=== PATIENT | female | born 1955 | race Caucasian/White ===

== ENCOUNTER → 2018-02-06 11:20 | Outpatient (CLI) | payer OTHER, SELFPAY ==
[2018-02-06 11:27] LABS: Adenovirus F 40/41, stool Not Detected (NotDetected); Astrovirus Not Detected (NotDetected); Campylobacter Not Detected (NotDetected); Cryptosporidium Not Detected (NotDetected); Cyclospora Cayetanesis Not Detected (NotDetected); Entamoeba histolytica Not Detected (NotDetected); Enteroaggregative E coli Not Detected (NotDetected); Enteropathogenic E coli Not Detected (NotDetected); Enterotoxigenic E coli Not Detected (NotDetected); Giardia lamblia Not Detected (NotDetected); Norovirus Not Detected (NotDetected); Plesimonas Shigalloides, PCR Not Detected (NotDetected); Rotavirus A Not Detected (NotDetected); Salmonella, PCR Not Detected (NotDetected); Sapovirus Not Detected (NotDetected); Shiga-like toxin E coli Not Detected (NotDetected); Shigella Enterovasive E coli Not Detected (NotDetected); Vibrio Cholerae Not Detected (NotDetected); Vibrio, PCR Not Detected (NotDetected); Yersinia Entercolitica, PCR Not Detected (NotDetected)
[2018-02-06 14:45] LABS: Occult Blood,Stool Negative (Negative)
[2018-02-06 18:59] LABS: Clostridium Difficile A/B, PCR Detected (NotDetected)
[2018-02-13 16:02] LABS: Fats, Neutral Normal (.); Fats, Total Normal (.)
== END ==
PROVIDERS: Visit Provider Internal Medicine
DX: R19.7 Diarrhea, unspecified (principal)
CPT/HCPCS: 82272; 82705; 87177; 87205; 87507; G0328

== ENCOUNTER → 2018-02-19 09:41 | Outpatient (POV) | payer OTHER, SELFPAY | PROVIDERS: Family Provider Internal Medicine; PCP Obstetrics & Gynecology; Visit Provider Nurse Practitioner Acute Care | DX: Z00.00 Encounter for general adult medical examination without abnormal findings (principal) ==

== ENCOUNTER → 2018-06-18 11:23 | Outpatient (POV) | payer OTHER, SELFPAY ==
[2018-06-18 16:30] LABS: Adenovirus F 40/41, stool Not Detected (NotDetected); Astrovirus Not Detected (NotDetected); Campylobacter Not Detected (NotDetected); Clostridium Difficile A/B, PCR Not Detected (NotDetected); Cryptosporidium Not Detected (NotDetected); Cyclospora Cayetanesis Not Detected (NotDetected); Entamoeba histolytica Not Detected (NotDetected); Enteroaggregative E coli Not Detected (NotDetected); Enteropathogenic E coli Not Detected (NotDetected); Enterotoxigenic E coli Not Detected (NotDetected); Giardia lamblia Not Detected (NotDetected); Norovirus Not Detected (NotDetected); Plesimonas Shigalloides, PCR Not Detected (NotDetected); Rotavirus A Not Detected (NotDetected); Salmonella, PCR Not Detected (NotDetected); Sapovirus Not Detected (NotDetected); Shiga-like toxin E coli Not Detected (NotDetected); Shigella Enterovasive E coli Not Detected (NotDetected); Vibrio Cholerae Not Detected (NotDetected); Vibrio, PCR Not Detected (NotDetected); Yersinia Entercolitica, PCR Not Detected (NotDetected)
== END ==
PROVIDERS: Visit Provider Nurse Practitioner Acute Care
DX: R19.7 Diarrhea, unspecified (principal)
CPT/HCPCS: 87507

== ENCOUNTER → 2018-08-13 12:41 | Outpatient (POV) | payer OTHER, SELFPAY | PROVIDERS: Visit Provider Nurse Practitioner Acute Care | DX: Z00.00 Encounter for general adult medical examination without abnormal findings (principal) ==

== ENCOUNTER → 2019-04-08 16:07 | Outpatient (CLI) | payer MEDICARE, BC, SELFPAY ==
[2019-04-08 16:10] LABS: Adenovirus F 40/41, stool Not Detected (NotDetected); Astrovirus Not Detected (NotDetected); Campylobacter Not Detected (NotDetected); Clostridium Difficile A/B, PCR Not Detected (NotDetected); Cryptosporidium Not Detected (NotDetected); Cyclospora Cayetanesis Not Detected (NotDetected); Entamoeba histolytica Not Detected (NotDetected); Enteroaggregative E coli Not Detected (NotDetected); Enteropathogenic E coli Not Detected (NotDetected); Enterotoxigenic E coli Not Detected (NotDetected); Giardia lamblia Not Detected (NotDetected); Norovirus Not Detected (NotDetected); Plesimonas Shigalloides, PCR Not Detected (NotDetected); Rotavirus A Not Detected (NotDetected); Salmonella, PCR Not Detected (NotDetected); Sapovirus Not Detected (NotDetected); Shiga-like toxin E coli Not Detected (NotDetected); Shigella Enterovasive E coli Not Detected (NotDetected); Vibrio Cholerae Not Detected (NotDetected); Vibrio, PCR Not Detected (NotDetected); Yersinia Entercolitica, PCR Not Detected (NotDetected)
== END ==
PROVIDERS: Visit Provider Nurse Practitioner Family
DX: R19.7 Diarrhea, unspecified (principal)
CPT/HCPCS: 87507

== ENCOUNTER → 2019-05-06 10:04 | Outpatient (POV) | payer OTHER, SELFPAY | PROVIDERS: PCP Internal Medicine; Visit Provider Nurse Practitioner Family | DX: Z00.00 Encounter for general adult medical examination without abnormal findings (principal) ==

== ENCOUNTER → 2019-08-05 10:40 | Outpatient (POV) | payer OTHER, SELFPAY | PROVIDERS: Visit Provider Nurse Practitioner Family | DX: Z00.00 Encounter for general adult medical examination without abnormal findings (principal) ==

== ENCOUNTER → 2021-04-27 17:01 | Outpatient (CLI) | payer MEDICARE, BC, SELFPAY ==
[2021-04-27 18:41] LABS: Hemoglobin A1C 11.2 % (4.0-6.0)
[2021-04-27 18:45] LABS: Alanine Aminotransferase 22 U/L (12-78); Albumin Level 3.8 g/dl (3.5-5.0); Albumin/Globulin Ratio 1.1 (1.1-1.8); Alkaline Phosphatase 72 U/L (38-126); Anion Gap 16.7 mEq/L (5-15); Aspartate Amino Transferase 33 U/L (14-36); Bilirubin,Total 0.8 mg/dl (0.2-1.3); Blood Urea Nitrogen 16 mg/dl (7-17); Calcium 9.4 mg/dl (8.4-10.2); Carbon Dioxide 25 mmol/L (22.0-30.0); Chloride 103 mmol/L (98-107); Chol/HDL Ratio 3.8 (1-3.5); Cholesterol 123 mg/dl (140-200); Estimated Glomerular Filt Rate 62 ml/min (>60); GFR (African American) 76 ML/MIN (>60); Globulin 3.4 g/dL (1.3-3.2); Glucose 179 mg/dl (74-100); HDL Cholesterol 32 mg/dl (40-60); Potassium 4.7 mmoL/L (3.5-5.1); Sodium 140 mmol/L (136-145); Total Protein,Serum 7.2 g/dl (6.3-8.2); Triglycerides 180 mg/dl (30-150); VLDL Cholesterol 36 mg/dL (0-40)
[2021-04-27 18:55] LABS: Direct LDL Cholesterol 61.24 mg/dL (100-129)
[2021-04-27 19:14] LABS: Thyroid Stimulating Hormone < 0.02 uIU/mL (0.465-4.68)
[2021-04-27 19:52] LABS: Free T4 (Free Thyroxine) 0.88 ng/dl (0.78-2.19)
== END ==
PROVIDERS: Visit Provider Internal Medicine
DX: E11.42 Type 2 diabetes mellitus with diabetic polyneuropathy (principal); I10 Essential (primary) hypertension; E78.5 Hyperlipidemia, unspecified; D35.2 Benign neoplasm of pituitary gland; K21.9 Gastro-esophageal reflux disease without esophagitis; R80.1 Persistent proteinuria, unspecified; Z79.84 Long term (current) use of oral hypoglycemic drugs
CPT/HCPCS: 80053; 80061; 83036; 84439; 84443

== ENCOUNTER → 2021-10-27 12:51 | Outpatient (CLI) | payer MEDICARE, BC, SELFPAY ==
[2021-10-27 13:52] LABS: Basophils # 0.1 K/mm3 (0-0.2); Basophils % 0.6 % (0.1-2.0); Eosinophils # 0.2 K/mm3 (0.0-0.4); Eosinophils % 2.2 % (0.1-12.0); Hematocrit 37.1 % (37.0-47.0); Hemoglobin 11.9 g/dL (12.2-16.2); Lymphocytes # 2.7 K/mm3 (0.7-4.5); Lymphocytes % 29.2 % (10-50); Mean Corpuscular HGB Conc 32.2 g/dL (31.8-35.4); Mean Corpuscular Hemoglobin 26.6 pg (27.0-31.2); Mean Corpuscular Volume 82.7 fl (81-99); Mean Platelet Volume 7.6 fl (7.4-10.4); Monocytes # 0.6 K/mm3 (0.1-1.0); Monocytes % 6.4 % (1.7-9.3); Neutrophils # 5.7 K/mm3 (1.8-7.8); Neutrophils % 61.8 % (37.0-80.0); Platelet Count 328 K/mm3 (142-424); Red Blood Count 4.49 M/mm3 (4.20-5.40); Red Cell Distribution Width 14.2 % (11.5-17.5); White Blood Count 9.2 K/mm3 (4.8-10.8)
[2021-10-27 14:32] LABS: Chloride 106 mmol/L (98-107)
[2021-10-27 14:33] LABS: Potassium 4.3 mmoL/L (3.5-5.1); Sodium 139 mmol/L (136-145)
[2021-10-27 14:35] LABS: Alanine Aminotransferase 18 U/L (12-78); Alkaline Phosphatase 70 U/L (38-126); Aspartate Amino Transferase 23 U/L (14-36); Bilirubin,Total 0.8 mg/dl (0.2-1.3); Blood Urea Nitrogen 16 mg/dl (7-17); Estimated Glomerular Filt Rate 62 ml/min (>60); GFR (African American) 76 ML/MIN (>60)
[2021-10-27 14:36] LABS: Albumin Level 3.6 g/dl (3.5-5.0); Albumin/Globulin Ratio 1.2 (1.1-1.8); Anion Gap 11.3 mEq/L (5-15); Calcium 9.3 mg/dl (8.4-10.2); Carbon Dioxide 26 mmol/L (22.0-30.0); Chol/HDL Ratio 3.2 (1-3.5); Cholesterol 106 mg/dl (140-200); Globulin 3.1 g/dL (1.3-3.2); Glucose 121 mg/dl (74-100); HDL Cholesterol 33 mg/dl (40-60); Total Protein,Serum 6.7 g/dl (6.3-8.2); Triglycerides 149 mg/dl (30-150); VLDL Cholesterol 30 mg/dL (0-40)
[2021-10-27 14:47] LABS: Direct LDL Cholesterol 56.62 mg/dL (100-129)
[2021-10-27 14:52] LABS: Free T4 (Free Thyroxine) 1.65 ng/dl (0.78-2.19)
[2021-10-27 15:07] LABS: Thyroid Stimulating Hormone < 0.02 uIU/mL (0.465-4.68)
[2021-10-27 19:27] LABS: Hemoglobin A1C 6.5 % (4.0-6.0)
== END ==
PROVIDERS: PCP Internal Medicine; Visit Provider Internal Medicine
DX: E11.42 Type 2 diabetes mellitus with diabetic polyneuropathy (principal); E11.43 Type 2 diabetes mellitus with diabetic autonomic (poly)neuropathy; I10 Essential (primary) hypertension; E78.5 Hyperlipidemia, unspecified; Z79.84 Long term (current) use of oral hypoglycemic drugs
CPT/HCPCS: 80053; 80061; 82533; 83036; 84439; 84443; 85025

== ENCOUNTER → 2021-11-09 09:40 | Outpatient (CLI) | payer MEDICARE, BC, SELFPAY | PROVIDERS: Visit Provider Internal Medicine | DX: Z01.812 Encounter for preprocedural laboratory examination (principal); Z11.52 Encounter for screening for COVID-19; Z12.11 Encounter for screening for malignant neoplasm of colon; Z86.010 Personal history of colon polyps | CPT/HCPCS: C9803; U0003; U0005 ==

== ENCOUNTER 2021-11-11 09:46 | Day surgery (SDC) | payer MEDICARE, BC, SELFPAY ==
[2021-11-09 13:02] VITALS: BMI 38.9
[2021-11-11 10:40] VITALS: BP 178/86; PULSE 98; RESP 18; TEMP 36.8; O2SAT 99
[2021-11-11 10:52] LABS: POC Glucose,Bedside 121 (70-110)
--- NOTE | 2021-11-11 10:59 | P.PN_ITS ---
[facility] Anesthesia Checklist - Patient Identification Patient Identification: Arm Band - Structural Data Admitted From: Home Planned Operative Procedure/s: Colonoscopy Consent for Planned Operative Procedure(s) Verified: Yes - NPO Status Verified Time NPO: 00:00 - Additional verifications Anesthesia Reactions: No - Airway Assessment C-Spine Mobility Assessed: Yes TMJ Mobility Assessed: Yes Dentition: Good Dentition - Neurological Assessment Level of Consciousness: Awake Hx Seizures: No Numbness or tingling in extremities: No - Anesthesia Plan Anesthesia Risk discussed: Yes Anesthesia Plan: Verified ASA Class: III Anesthesia Type: MAC [facility] History I have reviewed the patient's past medical history: Yes Medical History: Reports:: Diabetes Mellitus Type 2, Hypertension Denies:: Cancer, Diabetes Mellitus Type 1, Internal Pacemaker, Lung Disease, MRSA, Seizures *Have you ever received a pneumonia vaccine?: Yes *Have you received a flu vaccine this season?: Yes Anesthesia experience/problems:: None Other Surgeries: No: Pacemaker Amputation: No - *Social History Last grade of school completed: High school graduate Smoking Status: Never smoker Alcohol Intake: current Alcohol Intake Frequency:: holidays/special occasions only Substance Use Type: denies use *Occupational Status:: retired Housing: house Household Members: spouse *Travel in the last 8 weeks: None Family Hx:: Unable to obtain
[2021-11-11 11:04] VITALS: O2SAT 99
--- NOTE | 2021-11-11 11:24 | HMH.SCOPE ---
- Procedure: Date: 11/11/21 Patient Date of :: 1955 Procedure Performed:: Screening colonoscopy Indications:: History of polyp Performing Provider:: Eugenie Correa MD Referring Provider:: Panchito Mendez MD Sedation:: Propofol Procedure:: After placing the patient in the left lateral decubitus position, the colonoscopy was gently inserted into the rectum and under direct visualization advanced to the cecum which was identified by transillumination in the right lower quadrant, identification of the ileocecal valve, appendiceal orifice, and cecal strap. Color, texture, mucosa, and anatomy of the colon were carefully examined with the scope. Findings:: Anal canal: normal Rectum: normal Sigmoid colon: normal without polyps or inflammatory changes Descending colon: normal without polyps or inflammatory changes Splenic flexure: normal Transverse colon: normal without polyps or inflammatory changes Hepatic flexure: normal Ascending colon: normal without polyps or inflammatory changes Cecum: normal Terminal ileum: not visualized Impression: Normal colonoscopy Recommendations:: Follow up screening examination in about FIVE years or so in view of history of polyps Complications:: None Estimated blood obtained (mL): 0
[2021-11-11 11:26] VITALS: BP 105/48; PULSE 96; RESP 16; TEMP 36.7; O2SAT 94
[2021-11-11 11:36] VITALS: BP 114/66; PULSE 65; RESP 16; O2SAT 99
[2021-11-11 11:46] VITALS: BP 109/58; PULSE 97; RESP 16; O2SAT 96
[2021-11-11 11:56] VITALS: BP 118/62; PULSE 93; RESP 16; TEMP 36.7; O2SAT 98
== END 2021-11-11 12:05 | disposition home or self-care (01) ==
LOC: OUTP 09:48
PROVIDERS: PCP Internal Medicine; Visit Provider Internal Medicine Gastroenterology
PROC: 0DJD8ZZ Inspection of Lower Intestinal Tract, Via Natural or Artificial Opening Endoscopic (ICD-10-PCS; CPT 45378; principal; 2021-11-11 11:00)
DX: Z12.11 Encounter for screening for malignant neoplasm of colon (principal); Z86.010 Personal history of colon polyps; E11.9 Type 2 diabetes mellitus without complications; I10 Essential (primary) hypertension; Z88.5 Allergy status to narcotic agent; Z88.8 Allergy status to other drugs, medicaments and biological substances; Z91.040 Latex allergy status; Z79.899 Other long term (current) drug therapy
CPT/HCPCS: G0105; 82962; J2704

== ENCOUNTER → 2022-04-30 08:59 | Outpatient (CLI) | payer MEDICARE, BC, SELFPAY ==
[2022-04-30 09:04] LABS: Adenovirus F 40/41, stool Not Detected (NotDetected); Astrovirus Not Detected (NotDetected); Campylobacter Not Detected (NotDetected); Clostridium Difficile A/B, PCR Not Detected (NotDetected); Cryptosporidium Not Detected (NotDetected); Cyclospora Cayetanesis Not Detected (NotDetected); Entamoeba histolytica Not Detected (NotDetected); Enteroaggregative E coli Not Detected (NotDetected); Enteropathogenic E coli Not Detected (NotDetected); Enterotoxigenic E coli Not Detected (NotDetected); Giardia lamblia Not Detected (NotDetected); Norovirus Not Detected (NotDetected); Plesimonas Shigalloides, PCR Not Detected (NotDetected); Rotavirus A Not Detected (NotDetected); Salmonella, PCR Not Detected (NotDetected); Sapovirus Not Detected (NotDetected); Shiga-like toxin E coli Not Detected (NotDetected); Shigella Enterovasive E coli Not Detected (NotDetected); Vibrio Cholerae Not Detected (NotDetected); Vibrio, PCR Not Detected (NotDetected); Yersinia Entercolitica, PCR Not Detected (NotDetected)
== END ==
PROVIDERS: PCP Internal Medicine; Visit Provider Internal Medicine
DX: K52.89 Other specified noninfective gastroenteritis and colitis (principal); R19.7 Diarrhea, unspecified
CPT/HCPCS: 87506

== ENCOUNTER → 2022-05-09 11:59 | Outpatient (CLI) | payer MEDICARE, BC, SELFPAY ==
[2022-05-09 14:58] LABS: Hemoglobin A1C 6.2 % (4.0-6.0)
[2022-05-09 15:08] LABS: Alanine Aminotransferase 18 U/L (12-78); Albumin Level 3.8 g/dl (3.5-5.0); Albumin/Globulin Ratio 1.2 (1.1-1.8); Alkaline Phosphatase 95 U/L (38-126); Anion Gap 16.3 mEq/L (5-15); Aspartate Amino Transferase 24 U/L (14-36); Bilirubin,Total 0.7 mg/dl (0.2-1.3); Blood Urea Nitrogen 15 mg/dl (7-17); Calcium 9.5 mg/dl (8.4-10.2); Carbon Dioxide 24 mmol/L (22.0-30.0); Chloride 103 mmol/L (98-107); Chol/HDL Ratio 3.5 (1-3.5); Cholesterol 127 mg/dl (140-200); Estimated Glomerular Filt Rate 62 ml/min (>60); GFR (African American) 75 ML/MIN (>60); Globulin 3.1 g/dL (1.3-3.2); Glucose 141 mg/dl (74-100); HDL Cholesterol 36 mg/dl (40-60); Potassium 4.3 mmoL/L (3.5-5.1); Sodium 139 mmol/L (136-145); Total Protein,Serum 6.9 g/dl (6.3-8.2); Triglycerides 215 mg/dl (30-150); VLDL Cholesterol 43 mg/dL (0-40)
[2022-05-09 15:25] LABS: Direct LDL Cholesterol 62.88 mg/dL (100-129); T4 (Thyroxine) 12.4 ug/dl (5.53-11.0)
[2022-05-09 15:39] LABS: Thyroid Stimulating Hormone < 0.02 uIU/mL (0.465-4.68)
[2022-05-10 11:06] LABS: Free T4 (Free Thyroxine) 1.56 ng/dl (0.78-2.19)
== END ==
PROVIDERS: PCP Internal Medicine; Visit Provider Internal Medicine
DX: E11.42 Type 2 diabetes mellitus with diabetic polyneuropathy (principal); D35.2 Benign neoplasm of pituitary gland; Z79.84 Long term (current) use of oral hypoglycemic drugs; Z79.899 Other long term (current) drug therapy
CPT/HCPCS: 80053; 80061; 83036; 84436; 84439; 84443

== ENCOUNTER → 2022-11-07 12:33 | Outpatient (CLI) | payer MEDICARE, BC, SELFPAY ==
[2022-11-07 15:40] LABS: Hemoglobin A1C 5.8 % (4.0-6.0)
[2022-11-07 15:47] LABS: Alanine Aminotransferase 21 U/L (12-78); Albumin Level 3.7 g/dl (3.5-5.0); Albumin/Globulin Ratio 1.2 (1.1-1.8); Alkaline Phosphatase 63 U/L (38-126); Anion Gap 17.5 mEq/L (5-15); Aspartate Amino Transferase 26 U/L (14-36); Bilirubin,Total 0.9 mg/dl (0.2-1.3); Blood Urea Nitrogen 13 mg/dl (7-17); Calcium 8.9 mg/dl (8.4-10.2); Carbon Dioxide 26 mmol/L (22.0-30.0); Chloride 101 mmol/L (98-107); Cholesterol 121 mg/dl (140-200); Estimated Glomerular Filt Rate 71 ml/min (>60); GFR (African American) 86 ML/MIN (>60); Glucose 99 mg/dl (74-100); HDL Cholesterol 40 mg/dl (40-60); Potassium 4.5 mmoL/L (3.5-5.1); Sodium 140 mmol/L (136-145); Total Protein,Serum 6.7 g/dl (6.3-8.2); Triglycerides 183 mg/dl (30-150); VLDL Cholesterol 37 mg/dL (0-40)
[2022-11-07 15:59] LABS: Direct LDL Cholesterol 59.03 mg/dL (100-129)
[2022-11-07 16:05] LABS: T4 (Thyroxine) 12.6 ug/dl (5.53-11.0)
[2022-11-07 16:18] LABS: Thyroid Stimulating Hormone < 0.02 uIU/mL (0.465-4.68)
[2022-11-09 13:59] LABS: Prolactin 30.5 ng/mL (4.8-23.3)
== END ==
PROVIDERS: PCP Internal Medicine; Visit Provider Internal Medicine
DX: E11.42 Type 2 diabetes mellitus with diabetic polyneuropathy (principal); I10 Essential (primary) hypertension; Z79.84 Long term (current) use of oral hypoglycemic drugs
CPT/HCPCS: 80053; 80061; 82533; 83036; 84146; 84436; 84443

== ENCOUNTER → 2022-11-16 11:59 | Outpatient (CLI) | payer MEDICARE, BC, SELFPAY ==
[2022-11-16 14:37] LABS: Free T4 (Free Thyroxine) 1.43 ng/dl (0.78-2.19)
== END ==
PROVIDERS: PCP Internal Medicine; Visit Provider Internal Medicine
DX: I10 Essential (primary) hypertension (principal); E03.9 Hypothyroidism, unspecified; E66.01 Morbid (severe) obesity due to excess calories
CPT/HCPCS: 84439

== ENCOUNTER → 2022-11-23 10:02 | Outpatient (CLI) | payer MEDICARE, BC, SELFPAY ==
--- NOTE | 2022-11-23 10:06 | MM_ITS ---
PROCEDURE INFORMATION: Exam: MG Bilateral Screening 3D Mammography Exam date and time: 11/23/2022 10:11 AM Age: 67 years old Clinical indication: Screening examination TECHNIQUE: Imaging protocol: Bilateral Screening tomosynthesis and 2D mammography including computer-aided detection (CAD) when performed. COMPARISON: No relevant prior studies available. FINDINGS: MAMMOGRAPHY: Breast composition: There are scattered areas of fibroglandular density. Mass: None. Architectural distortion: None. Calcifications: Probably benign dystrophic calcifications clustered in the posterior third of the left upper outer quadrant Asymmetric density: Questionable 1.0 cm focal asymmetry in the posterior third of the right approximate 6 o'clock axis Skin thickening: None. Axillary adenopathy: None. IMPRESSION: 1. Patient to be recalled for spot compression views of the right breast in the CC and MLO projections, a full 90 degree lateral view, and right breast ultrasound for further evaluation of a right breast mass. 2. Patient to be recalled for spot magnification views of the left breast in the CC and MLO projections for further evaluation of left breast calcifications. ASSESSMENT: BI-RADS Category 0: Incomplete- Need Additional Imaging Evaluation and/or Prior Mammograms for Comparison
== END ==
PROVIDERS: PCP Internal Medicine; Visit Provider Internal Medicine
DX: Z12.31 Encounter for screening mammogram for malignant neoplasm of breast (principal)
CPT/HCPCS: 77063; 77067

== ENCOUNTER → 2022-12-09 14:32 | Outpatient (CLI) | payer MEDICARE, BC, SELFPAY ==
--- NOTE | 2022-12-09 14:37 | MM_ITS ---
PROCEDURE INFORMATION: Exam: US Right Breast, Complete MG Bilateral Diagnostic Breast Tomosynthesis Exam date and time: 12/09/2022 2:31 PM Age: 67 years old Clinical indication: Patient recalled on the basis of a screening mammogram for further evaluation; Bilateral breasts; right breast asymmetry and left breast calcifications TECHNIQUE: Imaging protocol: Complete ultrasound of all four quadrants of the right breast and the retroareolar regions, including ultrasound of the axilla when performed. Bilateral Diagnostic tomosynthesis and 2D mammography including computer-aided detection (CAD) when performed. Unilateral or bilateral exam. COMPARISON: 1. MG MM DIG SCREENING MAMM BI W/CAD 11/23/2022 10:11 AM 2. MG MAMMO SCREENING BILATERAL W CAD 08/21/2013 11:45 AM FINDINGS: MAMMOGRAPHY: Digital diagnostic magnification views of the posterior left upper outer quadrant demonstrate a cluster uniformly dense slightly variable in shape calcifications. The calcifications span 0.7 cm of breast tissue. There is no associated soft tissue mass. The calcifications are probably benign in etiology. Digital diagnostic spot compression views of the posterior right 6 o'clock axis demonstrates a persistent VA 0.7 cm asymmetry better seen in the craniocaudal projection. ULTRASOUND: Sonographic images of the . Right breast including the retroareolar region, all 4 quadrants and the axilla do not demonstrate any solid or cystic masses. Cursors were placed over a benign fat lobule in the 6 o'clock axis 2 cm from the nipple. Specifically, the asymmetry on mammography is not seen on sonography. No architectural distortion or acoustical shadowing. Evaluation of the right axilla demonstrates the suggestion of a possible 4.5 cm abnormal lymph node, in that, no fatty hilum is identified. IMPRESSION: 1. Probably benign focal asymmetry in the posterior right 6 o'clock axis only seen on mammography. A six-month follow-up diagnostic right mammogram is recommended to ensure stability over time 2. Probably benign left breast calcifications. A six-month follow-up diagnostic left mammogram is recommended to ensure stability over time 3. Cursors were placed over what appears to be an abnormal lymph node in the right axilla. Repeat sonography is recommended. If persistent abnormal right axillary lymph node is identified, ultrasound-guided core biopsy is recommended for further evaluation ASSESSMENT: BI-RADS Category 0: Incomplete- Need Additional Imaging Evaluation and/or Prior Mammograms for Comparison
== END ==
PROVIDERS: PCP Internal Medicine; Visit Provider Internal Medicine
DX: R92.8 Other abnormal and inconclusive findings on diagnostic imaging of breast (principal)
CPT/HCPCS: 76641; 77062; 77066; G0279

== ENCOUNTER → 2023-01-11 13:10 | Outpatient (CLI) | payer MEDICARE, BC, SELFPAY ==
--- NOTE | 2023-01-11 13:10 | US_ITS ---
PROCEDURE INFORMATION: Exam: US Right Breast Limited Exam date and time: 01/11/2023 1:52 PM Age: 67 years old Clinical indication: Lymph node swollen TECHNIQUE: Imaging protocol: Limited ultrasound of right breast with image documentation, including axilla when performed. Exam focused on the search and evaluation for mass. COMPARISON: US BREAST RT COMPLETE 12/09/2022 3:21 PM FINDINGS: Breast: Sonographic images of the right axilla demonstrate cursors over a 4.5 cm area of hypoechoic tissue possibly reflecting an abnormal lymph node. There is a 1.4 cm fat containing benign-appearing axillary lymph node identified. IMPRESSION: Questionable abnormal deep right axillary lymph node. Ultrasound followed by ultrasound-guided core biopsy is recommended for further evaluation ASSESSMENT: BI-RADS Category 4: Suspicious
== END ==
PROVIDERS: PCP Internal Medicine; Visit Provider Surgery
DX: N64.4 Mastodynia (principal); R59.9 Enlarged lymph nodes, unspecified
CPT/HCPCS: 76641

== ENCOUNTER → 2023-01-20 09:25 | Outpatient (CLI) | payer MEDICARE, BC, SELFPAY ==
--- NOTE | 2023-01-20 09:26 | US_ITS ---
FINAL REPORT CLINICAL HISTORY: .fna axillary node-- liban vazquez--- FINDINGS: Ultrasound guided right axillary core biopsy. HISTORY: Right axillarymass. Attending radiologist: Dr. Humphrey Physician Professional Nurse: Liban Vazquez PA-C PROCEDURE: After informed consent was obtained and a time-out was performed, the patient was prepped and draped in usual sterile fashion over the right axilla. Utilizing local anesthesia and sterile technique with a 18-gauge coaxial core system, access to lesion was obtained. A total of 4 separate 18-gauge core biopsies were obtained. passes were made. The patient received no conscious sedation. The patient tolerated procedure well and left the department in good condition. IMPRESSION: Status post ultrasound guided core biopsy of right axillary mass without immediate complication. Films reviewed , interpreted and dictated by Dr. Soraida Humphrey. Transcribed by Liban Vazquez PA-C. Reviewed, Interpreted and Dictated by Soraida Humphrey MD Transcribed by MARY KAY Perez Authenticated and [facility]
== END ==
PROVIDERS: PCP Internal Medicine; Visit Provider Surgery
DX: R59.9 Enlarged lymph nodes, unspecified (principal)
CPT/HCPCS: 10005; 88184; 88185; 88305

== ENCOUNTER → 2023-02-08 14:27 | Outpatient (CLI) | payer MEDICARE, BC, SELFPAY ==
[2023-02-08 16:03] LABS: Anion Gap 15.9 mEq/L (5-15); Blood Urea Nitrogen 18 mg/dl (7-17); Calcium 9.3 mg/dl (8.4-10.2); Carbon Dioxide 25 mmol/L (22.0-30.0); Chloride 106 mmol/L (98-107); Estimated Glomerular Filt Rate 49 ml/min (>60); GFR (African American) 60 ML/MIN (>60); Glucose 127 mg/dl (74-100); Potassium 4.9 mmoL/L (3.5-5.1); Sodium 142 mmol/L (136-145)
[2023-02-08 17:09] LABS: Hemoglobin A1C 5.8 % (4.0-6.0)
== END ==
PROVIDERS: PCP Internal Medicine; Visit Provider Internal Medicine
DX: E11.42 Type 2 diabetes mellitus with diabetic polyneuropathy (principal); I10 Essential (primary) hypertension; D35.2 Benign neoplasm of pituitary gland; E78.5 Hyperlipidemia, unspecified; K21.9 Gastro-esophageal reflux disease without esophagitis; E66.01 Morbid (severe) obesity due to excess calories; Z68.35 Body mass index [BMI] 35.0-35.9, adult; Z79.84 Long term (current) use of oral hypoglycemic drugs
CPT/HCPCS: 80048; 83036

== ENCOUNTER → 2023-02-20 12:43 | Outpatient (CLI) | payer MEDICARE, BC, SELFPAY ==
--- NOTE | 2023-02-20 12:43 | CT_ITS ---
FINAL REPORT TECHNIQUE: Thin section axial CT images with coronal reformats were obtained through the neck after the administration of IV contrast. This study was performed with techniques to keep radiation doses as low as reasonably achievable (ALARA). Individualized dose reduction techniques using automated exposure control or adjustment of mA and/or kV according to the patient's size were employed. CLINICAL HISTORY: Lymph node swollen COMPARISON: None FINDINGS: There is no adenopathy or mass lesion present. There are multiple nodules and/or cysts present in the thyroid gland bilaterally, compatible with a multinodular goiter. Limited images of the lung apices are unremarkable. The glottis and supraglottic areas are unremarkable. There is degenerative change at the C6-7 disc space level, as well as bilateral neural foraminal narrowing at the C5-6 and C6-7 levels. IMPRESSION: Multiple thyroid nodules and/or cysts, present in the thyroid gland bilaterally, compatible with a multinodular goiter. Degenerative change in the lower cervical spine as described. Reviewed, Interpreted and Dictated by Everette Gonzalez MD Transcribed by Melissa Jones Authenticated and [facility]
== END ==
PROVIDERS: PCP Internal Medicine; Visit Provider Surgery
DX: R59.9 Enlarged lymph nodes, unspecified (principal)
CPT/HCPCS: 70491; Q9967

== ENCOUNTER → 2023-02-23 11:25 | Outpatient (CLI) | payer MEDICARE, BC, SELFPAY ==
--- NOTE | 2023-02-23 11:28 | CT_ITS ---
FINAL REPORT TECHNIQUE: Routine axial images were obtained from the lung apices to below the diaphragm following IV contrast administration. Individualized dose reduction techniques using automated exposure control or adjustment of the mA and/or kV according to the patient size were employed. CLINICAL HISTORY: potential axillary lymphadenopathy COMPARISON: None FINDINGS: There is a heterogeneous thyroid with a dominant 1.7 cm cyst in the right lobe. No mediastinal masses or nodes are identified. There is a 1.1 x 0.9 cm ovoid noncalcified mass in the right lower lobe, seen on axial image #32. Also in the right lower lobe there is a 5 mm nodule seen on axial image #37. No infiltrates or effusions are identified. No axillary or hilar adenopathy is noted. The portions of the upper abdomen visualized are unremarkable. IMPRESSION: Noncalcified nodule right lower lobe, 1.1 x 0.9 cm in size. Also a 5 mm noncalcified nodule also seen in the right lower lobe. Would recommend either low-dose CT scan in 3 months, or a PET CT scan for further evaluation depending upon patient history. Dominant 1.7 cm nodule right lobe of the thyroid gland, heterogeneous but predominantly cystic. Recommend thyroid ultrasound as indicated for further evaluation. No adenopathy is seen in the axilla, the douglas, or the mediastinum. Reviewed, Interpreted and Dictated by Everette Gonzalez MD Transcribed by Melissa Jones Authenticated and [facility]
== END ==
PROVIDERS: PCP Internal Medicine; Visit Provider Surgery
DX: R59.9 Enlarged lymph nodes, unspecified (principal)
CPT/HCPCS: 71260; Q9967

== ENCOUNTER → 2023-03-01 12:33 | Outpatient (CLI) | payer MEDICARE, BC, SELFPAY ==
[2023-03-01 14:15] LABS: Amylase 67 U/L (30-110)
== END ==
PROVIDERS: PCP Internal Medicine; Visit Provider Internal Medicine
DX: R10.13 Epigastric pain (principal); R91.8 Other nonspecific abnormal finding of lung field; E04.2 Nontoxic multinodular goiter
CPT/HCPCS: 82150

== ENCOUNTER → 2023-05-15 13:41 | Outpatient (CLI) | payer MEDICARE, BC, SELFPAY ==
[2023-05-15 15:30] LABS: Alanine Aminotransferase 20 U/L (12-78); Albumin/Globulin Ratio 1.2 (1.1-1.8); Alkaline Phosphatase 67 U/L (38-126); Anion Gap 12.8 mEq/L (5-15); Aspartate Amino Transferase 29 U/L (14-36); Bilirubin,Total 0.9 mg/dl (0.2-1.3); Blood Urea Nitrogen 15 mg/dl (7-17); Calcium 9.5 mg/dl (8.4-10.2); Carbon Dioxide 26 mmol/L (22.0-30.0); Chloride 106 mmol/L (98-107); Chol/HDL Ratio 3.8 (1-3.5); Cholesterol 134 mg/dl (140-200); Estimated Glomerular Filt Rate 55 ml/min (>60); GFR (African American) 67 ML/MIN (>60); Globulin 3.3 g/dL (1.3-3.2); Glucose 113 mg/dl (74-100); HDL Cholesterol 35 mg/dl (40-60); Potassium 4.8 mmoL/L (3.5-5.1); Sodium 140 mmol/L (136-145); Total Protein,Serum 7.3 g/dl (6.3-8.2); Triglycerides 203 mg/dl (30-150); VLDL Cholesterol 41 mg/dL (0-40)
[2023-05-15 15:41] LABS: Direct LDL Cholesterol 69.61 mg/dL (100-129)
[2023-05-15 15:45] LABS: Free T4 (Free Thyroxine) 1.48 ng/dl (0.78-2.19)
[2023-05-15 15:46] LABS: Hemoglobin A1C 5.9 % (4.0-6.0)
[2023-05-15 15:59] LABS: Thyroid Stimulating Hormone < 0.02 uIU/mL (0.465-4.68)
== END ==
PROVIDERS: PCP Internal Medicine; Visit Provider Internal Medicine
DX: E11.42 Type 2 diabetes mellitus with diabetic polyneuropathy (principal); I10 Essential (primary) hypertension; E78.5 Hyperlipidemia, unspecified; E04.2 Nontoxic multinodular goiter; D35.2 Benign neoplasm of pituitary gland; Z79.84 Long term (current) use of oral hypoglycemic drugs; Z79.85 Long-term (current) use of injectable non-insulin antidiabetic drugs
CPT/HCPCS: 80053; 80061; 83036; 84439; 84443

== ENCOUNTER → 2023-05-16 13:17 | Outpatient (CLI) | payer MEDICARE, BC, SELFPAY ==
[2023-05-16 15:18] LABS: Creatinine,Urine Random 50 mg/dL (Not Estab.)
[2023-05-16 15:22] LABS: Microalbumin < 6.000 mg/L (0-16.7)
== END ==
PROVIDERS: PCP Internal Medicine; Visit Provider Internal Medicine
DX: E11.42 Type 2 diabetes mellitus with diabetic polyneuropathy (principal); I10 Essential (primary) hypertension; D35.2 Benign neoplasm of pituitary gland; Z79.84 Long term (current) use of oral hypoglycemic drugs; Z79.85 Long-term (current) use of injectable non-insulin antidiabetic drugs
CPT/HCPCS: 82043; 82570

== ENCOUNTER 2023-11-22 16:50 | Outpatient (CLI) | payer MEDICARE, BC, SELFPAY ==
[2023-11-22 17:25] LABS: Basophils # 0.1 K/mm3 (0-0.2); Basophils % 0.7 % (0.1-2.0); Eosinophils # 0.2 K/mm3 (0.0-0.4); Eosinophils % 2.9 % (0.1-12.0); Hematocrit 37.1 % (37.0-47.0); Hemoglobin 11.9 g/dL (12.2-16.2); Lymphocytes # 2.4 K/mm3 (0.7-4.5); Lymphocytes % 32.9 % (10-50); Mean Corpuscular HGB Conc 32.1 g/dL (31.8-35.4); Mean Corpuscular Hemoglobin 28.5 pg (27.0-31.2); Mean Corpuscular Volume 88.7 fl (81-99); Mean Platelet Volume 8.6 fl (7.4-10.4); Monocytes # 0.5 K/mm3 (0.1-1.0); Monocytes % 6.5 % (1.7-9.3); Neutrophils # 4.2 K/mm3 (1.8-7.8); Platelet Count 284 K/mm3 (142-424); Red Blood Count 4.18 M/mm3 (4.20-5.40); Red Cell Distribution Width 14.7 % (11.5-17.5); White Blood Count 7.4 K/mm3 (4.8-10.8)
[2023-11-22 18:41] LABS: Alanine Aminotransferase 19 U/L (12-78); Albumin Level 3.9 g/dl (3.5-5.0); Albumin/Globulin Ratio 1.3 (1.1-1.8); Alkaline Phosphatase 63 U/L (38-126); Anion Gap 14.4 mEq/L (5-15); Aspartate Amino Transferase 28 U/L (14-36); Bilirubin,Total 1.1 mg/dl (0.2-1.3); Blood Urea Nitrogen 15 mg/dl (7-17); Calcium 9.3 mg/dl (8.4-10.2); Carbon Dioxide 26 mmol/L (22.0-30.0); Chloride 105 mmol/L (98-107); Cholesterol 128 mg/dl (140-200); Estimated Glomerular Filt Rate 62 ml/min (>60); GFR (African American) 75 ML/MIN (>60); Glucose 97 mg/dl (74-100); HDL Cholesterol 43 mg/dl (40-60); Potassium 4.4 mmoL/L (3.5-5.1); Sodium 141 mmol/L (136-145); Total Protein,Serum 6.9 g/dl (6.3-8.2); Triglycerides 178 mg/dl (30-150); VLDL Cholesterol 36 mg/dL (0-40)
[2023-11-22 18:57] LABS: Direct LDL Cholesterol 69.26 mg/dL (100-129)
[2023-11-22 19:43] LABS: Thyroid Stimulating Hormone < 0.02 uIU/mL (0.465-4.68)
== END 2023-11-22 23:59 | disposition home or self-care (01) ==
LOC: LAB.DROPOF 16:50
PROVIDERS: PCP Internal Medicine; Visit Provider Internal Medicine
DX: E11.42 Type 2 diabetes mellitus with diabetic polyneuropathy (principal); E11.43 Type 2 diabetes mellitus with diabetic autonomic (poly)neuropathy; I10 Essential (primary) hypertension; R80.1 Persistent proteinuria, unspecified; E04.2 Nontoxic multinodular goiter; D35.2 Benign neoplasm of pituitary gland; Z79.84 Long term (current) use of oral hypoglycemic drugs
CPT/HCPCS: 80053; 80061; 82533; 83036; 84146; 84439; 84443; 85025

== ENCOUNTER 2024-03-06 10:17 | Outpatient (CLI) | payer MEDICARE, BC, SELFPAY ==
--- NOTE | 2024-03-06 10:18 | US_ITS ---
FINAL REPORT CLINICAL HISTORY: Evaluate right thyroid nodule COMPARISON: CT neck soft tissue 02/20/2023 FINDINGS: Sonographic images of the thyroid gland were obtained. The right thyroid lobe measures 52 mm. in length. The left thyroid lobe measures 40 mm. in length. The thyroid isthmus measures 5 mm. The echogenicity is normal. Multiple nodules are seen in the thyroid gland bilaterally. The largest on the right measures 29 mm, spongiform, TR 1. The largest on the left measures 18 mm, mostly solid, isoechoic, TR 3. Multiple other smaller nodules are seen bilaterally. IMPRESSION: Multiple nodules, likely multinodular goiter. Consider follow-up in 12 months per TI-RADS criteria. Reviewed, Interpreted and Dictated by Eugene Ng III, MD Transcribed by Joseline Roberts Authenticated and [facility]
== END 2024-03-06 23:59 | disposition home or self-care (01) ==
LOC: RAD 10:18
PROVIDERS: PCP Internal Medicine; Visit Provider Internal Medicine
DX: E04.1 Nontoxic single thyroid nodule (principal)
CPT/HCPCS: 76536

== ENCOUNTER 2024-03-11 07:12 | Outpatient (CLI) | payer MEDICARE, BC, SELFPAY ==
--- NOTE | 2024-03-11 07:13 | CT_ITS ---
FINAL REPORT TECHNIQUE: Axial CT images were performed from the lung apices through the upper abdomen. Coronal and sagittal reformats were submitted. This study was performed with techniques to keep radiation doses as low as reasonably achievable (ALARA). Individualized dose reduction techniques using automated exposure control or adjustment of mA and/or kV according to the patient's size were employed. CLINICAL HISTORY: Follow-up on right lower lobe nodules COMPARISON: 02/23/2023 FINDINGS: The thyroid gland is heterogeneous, with a 21 mm right nodule present. This was also seen on an ultrasound of the thyroid performed 03/06/2024. There is no axillary adenopathy. There is no hilar or mediastinal mass or adenopathy. Heart size is normal. Severe coronary artery calcifications are present. There is no pericardial or pleural effusion. There is a left adrenal nodule measuring 10 mm, stable and may represent an adenoma. There is a lobular nodule in the superior segment of the right upper lobe, which has enlarged since the prior CT of 2022. On today's exam this nodule measures 14 mm, was previously 11 mm. The 5 mm right lower lobe nodule seen on the prior exam measures 6 mm on today's exam. IMPRESSION: Previously noted superior segment of the right upper lobe nodule on today's examination measures 14 mm in size, was previously 11. Suggest PET CT for further evaluation. 5 mm right lower lobe nodule seen on the prior exam measures 6 mm on today's exam. Heterogeneous thyroid gland with a 21 mm right lobe nodule, also seen on an ultrasound of the thyroid performed 03/06/2024. Reviewed, Interpreted and Dictated by Eugene Ng III, MD Transcribed by Melissa Jones Authenticated and . [facility]
== END 2024-03-11 23:59 | disposition home or self-care (01) ==
LOC: RAD 07:13
PROVIDERS: PCP Internal Medicine; Visit Provider Internal Medicine
DX: R91.1 Solitary pulmonary nodule (principal)
CPT/HCPCS: 71250

== ENCOUNTER 2024-03-20 15:54 | Outpatient (CLI) | payer MEDICARE, BC, SELFPAY ==
[2024-03-20 16:39] LABS: Adenovirus,PCR Not Detected (NotDetected); Bordetella Pertussis Not Detected (NotDetected); Chlamydophila Pneumoniae, PCR Not Detected (NotDetected); Coronavirus 229E Not Detected (NotDetected); Coronavirus NL63 Not Detected (NotDetected); Coronavirus OC43 Not Detected (NotDetected); Coronovirus HKU1,PCR Not Detected (NotDetected); Human Metapneumovirus Not Detected (NotDetected); Influenza A, PCR Not Detected (NotDetected); Influenza AH1, 2009 Not Detected (NotDetected); Influenza AH1, PCR Not Detected (NotDetected); Influenza AH3,PCR Not Detected (NotDetected); Influenza B, PCR Not Detected (NotDetected); Mycoplasma Pneumoniae, PCR Not Detected (NotDetected); Parainfluenza 1, PCR Not Detected (NotDetected); Parainfluenza 2, PCR Not Detected (NotDetected); Parainfluenza 3, PCR Not Detected (NotDetected); Parainfluenza 4, PCR Not Detected (NotDetected); Respiratory Syncytial Virus Not Detected (NotDetected); Rhinovirus/Enterovirus Not Detected (NotDetected)
[2024-03-20 19:22] LABS: Coronavirus 19, PCR Detected (NotDetected)
== END 2024-03-20 23:59 | disposition home or self-care (01) ==
PROVIDERS: PCP Internal Medicine; Visit Provider Internal Medicine
DX: J06.9 Acute upper respiratory infection, unspecified (principal); R05.9 Cough, unspecified; R50.9 Fever, unspecified
CPT/HCPCS: 87265; 87486; 87581; 87632; 87635

== ENCOUNTER 2024-04-05 08:59 | Outpatient (CLI) | payer MEDICARE, BC, SELFPAY ==
--- NOTE | 2024-04-05 09:06 | XR_ITS ---
FINAL REPORT CLINICAL HISTORY: Pain in left humerus from a fall COMPARISON: None FINDINGS: Two views of the left humerus were obtained. There is no acute fracture or dislocation. There are mild hypertrophic changes at the acromioclavicular joint. There is no acute soft tissue abnormality. IMPRESSION: No acute abnormality identified. Reviewed, Interpreted and Dictated by Everette Gonzalez MD Transcribed by Lynn Torres Authenticated and [facility]
== END 2024-04-05 23:59 | disposition home or self-care (01) ==
LOC: RAD 09:03
PROVIDERS: PCP Internal Medicine; Visit Provider Internal Medicine
DX: M79.622 Pain in left upper arm (principal)
CPT/HCPCS: 73060

== ENCOUNTER 2024-05-28 09:45 | Outpatient (CLI) | payer MEDICARE, BC, SELFPAY ==
[2024-05-28 12:49] LABS: Basophils # 0.1 K/mm3 (0-0.2); Eosinophils # 0.2 K/mm3 (0.0-0.4); Eosinophils % 2.6 % (0.1-12.0); Hematocrit 37.4 % (37.0-47.0); Hemoglobin 12.8 g/dL (12.2-16.2); Lymphocytes # 3.4 K/mm3 (0.7-4.5); Mean Corpuscular HGB Conc 34.1 g/dL (31.8-35.4); Mean Corpuscular Hemoglobin 29.2 pg (27.0-31.2); Mean Corpuscular Volume 85.6 fl (81-99); Mean Platelet Volume 7.8 fl (7.4-10.4); Monocytes # 0.5 K/mm3 (0.1-1.0); Monocytes % 6.3 % (1.7-9.3); Neutrophils # 4.3 K/mm3 (1.8-7.8); Platelet Count 305 K/mm3 (142-424); Red Blood Count 4.37 M/mm3 (4.20-5.40); Red Cell Distribution Width 14.8 % (11.5-17.5); White Blood Count 8.5 K/mm3 (4.8-10.8)
[2024-05-28 14:34] LABS: Alanine Aminotransferase 19 U/L (12-78); Albumin Level 3.9 g/dl (3.5-5.0); Albumin/Globulin Ratio 1.3 (1.1-1.8); Alkaline Phosphatase 63 U/L (38-126); Anion Gap 14.1 mEq/L (5-15); Aspartate Amino Transferase 27 U/L (14-36); Blood Urea Nitrogen 14 mg/dl (7-17); Calcium 9.2 mg/dl (8.4-10.2); Carbon Dioxide 25 mmol/L (22.0-30.0); Chloride 106 mmol/L (98-107); Cholesterol 115 mg/dl (140-200); Creatinine,Urine Random 394 mg/dL (Not Estab.); Estimated Glomerular Filt Rate 62 ml/min (>60); GFR (African American) 75 ML/MIN (>60); Globulin 2.9 g/dL (1.3-3.2); Glucose 111 mg/dl (74-100); HDL Cholesterol 38 mg/dl (40-60); Microalbumin/Creatinine Ratio 15.3; Potassium 4.1 mmoL/L (3.5-5.1); Sodium 141 mmol/L (136-145); Total Protein,Serum 6.8 g/dl (6.3-8.2); Triglycerides 211 mg/dl (30-150); VLDL Cholesterol 42 mg/dL (0-40)
[2024-05-28 14:45] LABS: Direct LDL Cholesterol 56.44 mg/dL (100-129)
[2024-05-28 15:04] LABS: Thyroid Stimulating Hormone < 0.02 uIU/mL (0.465-4.68)
[2024-05-28 18:33] LABS: Free T4 (Free Thyroxine) 1.41 ng/dl (0.78-2.19)
[2024-05-28 21:22] LABS: Hemoglobin A1C 6.3 % (4.0-6.0)
[2024-05-29 13:11] LABS: Prolactin 35.6 ng/mL (3.6-25.2)
== END 2024-05-28 23:59 | disposition home or self-care (01) ==
LOC: LAB.DROPOF 05-29 06:56
PROVIDERS: PCP Internal Medicine; Visit Provider Internal Medicine
DX: I10 Essential (primary) hypertension (principal); E78.5 Hyperlipidemia, unspecified; R94.6 Abnormal results of thyroid function studies; Z87.898 Personal history of other specified conditions; E11.43 Type 2 diabetes mellitus with diabetic autonomic (poly)neuropathy; E11.42 Type 2 diabetes mellitus with diabetic polyneuropathy
CPT/HCPCS: 80053; 80061; 82043; 82570; 83036; 84146; 84439; 84443; 85025

== ENCOUNTER 2024-12-05 08:45 | Outpatient (CLI) | payer MEDICARE, BC, SELFPAY ==
[2024-12-05 14:04] LABS: Microscopic, Urine URINE MICROSCOPIC (MICROSCOPIC)
[2024-12-05 14:31] LABS: Appearance,Urine CLOUDY (Clear); Blood, Urine Negative (Negative); Color,Urine YELLOW (Yellow); Glucose,Urine (UA) Negative (Negative); Ketones,Urine Negative (Negative); Leukocyte Esterase,Urine Negative (Negative); Nitrate,Urine Negative (Negative); Protein,Urine TRACE (Negative); Urobilinogen,Urine 0.2 EU/dl (0.2)
[2024-12-05 15:02] LABS: Bilirubin,Urine 1+ (Negative)
[2024-12-05 15:03] LABS: Specific Gravity, Urine 1.026 (1.005-1.030)
[2024-12-05 15:51] LABS: Alanine Aminotransferase 17 U/L (12-78); Albumin Level 3.9 g/dl (3.5-5.0); Albumin/Globulin Ratio 1.3 (1.1-1.8); Alkaline Phosphatase 60 U/L (38-126); Aspartate Amino Transferase 28 U/L (14-36); Bilirubin,Total 1.5 mg/dl (0.2-1.3); Blood Urea Nitrogen 15 mg/dl (7-17); Carbon Dioxide 26 mmol/L (22.0-30.0); Chloride 106 mmol/L (98-107); Chol/HDL Ratio 3.6 (1-3.5); Cholesterol 123 mg/dl (140-200); Estimated Glomerular Filt Rate 62 ml/min (>60); GFR (African American) 75 ML/MIN (>60); Globulin 3.1 g/dL (1.3-3.2); Glucose 119 mg/dl (74-100); HDL Cholesterol 34 mg/dl (40-60); Sodium 140 mmol/L (136-145); Triglycerides 191 mg/dl (30-150); VLDL Cholesterol 38 mg/dL (0-40)
[2024-12-05 16:02] LABS: Direct LDL Cholesterol 57.56 mg/dL (100-129)
[2024-12-05 16:12] LABS: Free T4 (Free Thyroxine) 1.35 ng/dl (0.78-2.19)
[2024-12-05 16:22] LABS: Thyroid Stimulating Hormone < 0.02 uIU/mL (0.465-4.68)
[2024-12-05 17:36] LABS: Bacteria,Urine 1+ /lpf; Hyaline Casts,Urine Occasional #/lpf (0); Mucus,Urine 1+ /lpf; RBC,Urine Occasional #/hpf (0-3); Squamous Epithelial Cell,Urine 20-50 #/hpf (0-5)
[2024-12-05 17:37] LABS: Calcium Oxalate Crystals,Urine Trace /lpf
[2024-12-05 21:46] LABS: Hemoglobin A1C 6.1 % (4.0-6.0)
--- OUTSIDE RECORDS SUMMARY | 2024-12-06 13:01 | XMS_ITS | Clinical Summary ---
Author Organization [facility] Address [address] [place] [address] Care Team Providers Care Etiology Teacher Name Role Phone Unavailable Primary Care Provider Unavailabl e Social History Tobacco Use Types Packs/Day Years Used Date Smoking Tobacco: Never Assessed Interpersonal Safety Answer Date Record ed Family or friends hurt you Not on file 03/29 Family or friends insult you Not on file Family or friends threaten you Not on file 0 03/29/2024 Family or friends scream or curse at you Not on file 03/29/2024 Food Insecurity Answer Date Recorded Food run out past 12 months Not on file 03/04 Food did not last past 12 months Not on file 03/29/2024 Employment Answer Date Recorded Help finding and keeping a job Not on file 0 03/29/2024 Family and Community Support Answer Phil e Recorded Help with Day to Day Activities Not on file 03/29/2024 Feeling Lonely or Isolated Not on file 03/29 Educational Attainment Answer Date Altaf rded Speak language other than Maltese at home Not on file 03/29/2024 Want help with school or training Not on file 03/29/2024 Depression Answer Date Recorded PHQ-2 Risk Not on file 03/29/2024 Disabilities Answer Date Recorded Difficulty concentrating Not on file 024 Difficulty doing errands alone Not on file 0 03/29/2024 Substance Use Answer Date Recorded Used prescription meds for non-medical reasons N ot on file 03/29/2024 Used illegal drugs past 12 months Not on file 03/29/2024 Comments Unknown Sex and Gender Information Value Date Recorded Sex Assigned at Not on file Legal Sex Female 3:21 PM CDT Gender Identity Not on file Sexual Orientation Not on file Plan of Treatment Health Maintenance Due Date Last Done Comments CT Colonography 1955 Colonoscopy 1955 Colorectal Cancer Screening 1955 DXA SCAN 1955 FOBT/FIT 1955 Fit-DNA (Cologuard) 1955 Sigmoidoscopy 1955 Depression Screening (12+) 1966 Tobacco Cessation Counseling and Screening (12+) 1966 Hepatitis C Screening 1972 DTAP/TDAP/TD VACCINES (1 - Tdap) 1973 Pneumococcal 50+ years (1 of 1 - PCV) 2004 Shingles Vaccine (Zoster) (1 of 2) 2004 Breast Cancer Screening 08/21/2015 08/21/2013 COVID-19 VACCINE ( season) 2024 07/07/2021, 09/30/2020, 09/02/2020 Falls Risk Screening 07/03/2024 Influenza Vaccine (Season Ended) 2025 Respiratory Syncytial Virus (RSV) Adult or (1 - 1-dose 75+ series) 2029
--- OUTSIDE RECORDS SUMMARY | 2024-12-06 13:01 | XMS_ITS | Clinical Summary ---
Author Organization Healthcare Address [address] [place] [address] Care Team Providers Care Artist'S Model Name Role Phone Panchito Mendez MD Primary Care Provider [phone] Family History Medical History Relation Name Comments Conversions - Other Brother 1 cerebral infarction Diabetes Brother 2 Hypertension Brother 3 Cardiac disorder Father Hypertension Father Diabetes Sister 1 Hypertension Sister 2 Other cancer Sister 3 Thyroid disease Sister 4 Relation Name Status Comments Brother 1 Brother 2 Brother 3 Father Sister 1 Sister 2 Sister 3 Sister 4 Social History Tobacco Use Types Packs/Day Years Used Date Smoking Tobacco: Passive Smo ke Exposure - Never Smoker Alcohol Use Standard Drinks/Week Comments No 0 (1 standard drink = 0.6 oz pur e alcohol) Comments Unknown Sex and Gender Information Value Date Recorded Sex Assigned at Not on file Legal Sex Female 8:25 PM EDT Gender Identity Not on file Sexual Orientation Not on file Last Filed Vital Signs Vital Sign Reading Time Taken Comments Blood Pressure - - Pulse - - Temperature - - Respiratory Rate - - Oxygen Saturation - - Inhaled Oxygen Concentration - - Weight 99.8 kg (220 lb) 12/29/2014 3:17 PM EDT Height 160 cm (5' 3 ) 12/29/2014 3:17 PM EDT Body Mass Index 38.97 12/29/2014 3:17 PM EDT Plan of Treatment Not on file Care Teams Artist'S Model Relationship Specialty Start Date End Date Panchito Mendez MD [address] [facility] [address] [place] [address] PCP - General 11/13/20
--- OUTSIDE RECORDS SUMMARY | 2024-12-06 13:01 | XMS_ITS | Referral Summary ---
Author Organization [facility] Address [address] [place] [address] Care Team Providers Care Hand Ii Cutter Name Role Phone Unavailable Primary Care Provider [...] Date Altaf rded Speak language other than Greek at home Not on file 03/29/2024 Want [...] Orientation Not on file Plan of Treatment Not on file
== END 2024-12-05 23:59 | disposition home or self-care (01) ==
LOC: LAB.DROPOF 12-06 12:59
PROVIDERS: PCP Internal Medicine; Visit Provider Internal Medicine
DX: R82.90 Unspecified abnormal findings in urine (principal); E78.5 Hyperlipidemia, unspecified; I10 Essential (primary) hypertension; E11.42 Type 2 diabetes mellitus with diabetic polyneuropathy; E04.1 Nontoxic single thyroid nodule
CPT/HCPCS: 80053; 80061; 81001; 83036; 84439; 84443

== ENCOUNTER 2025-04-15 10:09 | Outpatient (CLI) | payer MEDICARE, BC, SELFPAY ==
--- OUTSIDE RECORDS SUMMARY | 2025-04-15 10:13 | XMS_ITS | Clinical Summary ---
Author Organization [facility] ([place], [place], [place], [place]) Address [address] [place] [address] Care Team Providers Care Area Operations Manager Name Role Phone Unavailable Primary Care Provider Unavailabl e Social History Tobacco Use Types Packs/Day Years Used Date Smoking Tobacco: Never Assessed Food Insecurity Answer Date Recorded Food run [...] Date Altaf rded Speak language other than Tajik at home Not on file 03/29/2024 Want help with school or training Not on file 03/29/2024 Substance Use Answer Date Recorded Used [...] 2) 2004 Breast Cancer Screening 08/21/2015 08/21/2013 Falls Risk Screening 07/03/2024 COVID-19 VACCINE (2024- season) 2025 07/07/2021, 09/30/2020, 09/02/2020 Influenza Vaccine (#1) 2025 Respiratory Syncytial Virus (RSV) Adult or (1 - 1-dose 75+ series) 2029
--- OUTSIDE RECORDS SUMMARY | 2025-04-15 10:13 | XMS_ITS | Clinical Summary ---
Author Organization [facility] Address [address] [place] [address] Care Team Providers Care Ophthalmic Photographer Name Role Phone Panchito Mendez MD Primary Care Provider [phone] Allergies Active Allergy Reactions Criticality Noted Date Comments Latex Rash Low 05/28/2019 Latex tape gives skin rash Lisinopril Cough 12/21/2015 Morphine And Codeine Dizziness 12/21/2015 Medications glimepiride (AMARYL) 4 MG tablet Take 1 tablet by mouth Every Morning Before Breakfast. 6 Active simvastatin (ZOCOR) 20 MG tablet Take 1 tablet by mouth Every Night. 6 Active carvedilol (COREG) 25 MG tablet Take 1 tablet by mouth 2 (Two) Times a Day With Meals. 6 Active valsartan-hydro chlorothiazide (DIOVAN-HCT) 320-25 MG per tablet Take 1 tablet by mouth Daily. 6 Active prednisoLONE acetate (PRED FORTE) 1 % ophthalmic suspension Administer 1 drop into the left eye 2 (Two) Times a Day. 6 Active atropine 1 % ophthalmic solution Administer 1 drop into the left eye Every Night. 6 Active Multiple Vitamins-Minera ls (MULTIVITAMIN ADULT PO) Take by mouth daily. Active LUMIGAN 0.01 % ophthalmic drops 7 Active omeprazole (priLOSEC) 20 MG capsule Take 1 capsule by mouth Daily. Active colesevelam (WELCHOL) 625 MG tablet 9 Active diphenoxylate-a tropine (LOMOTIL) 2.5-0.025 MG per tablet 9 Active irbesartan-hydr ochlorothiazide (AVALIDE) 300-12.5 MG tablet 9 Active Procto-Med HC 2.5 % rectal cream 0 Active Pazeo 0.7 % solution 0 Active Januvia 100 MG tablet 0 Active sertraline (ZOLOFT) 50 MG tablet 1 Active oxybutynin (DITROPAN) 5 MG tablet 2 Active latanoprost (XALATAN) 0.005 % ophthalmic solution 4 Active Trulicity 0.75 MG/0.5ML solution auto-injector 4 Active Active Problems Problem Noted Date Diagnosed Date S/P selective transsphenoidal pituitary adenomec jace 05/09/2023 Pituitary adenoma 03/14/2016 Pituitary adenoma with extrasellar extension Diabetes 12/23/2015 Immunizations Immunization Administration Dates Next Due Influenza, Unspecified 04/21/2015 Family History Medical History Relation Name Comments Heart disease Father Diabetes Sister Relation Name Status Comments Father Sister Social History Tobacco Use Types Packs/Day Years Used Date Smoking Tobacco: Never Smokeless Tobacco: Never Tobacco Cessation:Counseling Given: Not Answered Alcohol Use Standard Drinks/Week Comments No 0 (1 standard drink = 0.6 oz pur e alcohol) Comments No Sex and Gender Information Value Date Recorded Sex Assigned at Not on file Legal Sex Female 12:44 PM EDT Gender Identity Not on file Sexual Orientation Not on file Last Filed Vital Signs Vital Sign Reading Time Taken Comments Blood Pressure 126/62 05/09/2024 1:44 PM EST Pulse 102 05/09/2023 1:22 PM EST Temperature 36.2 C (97.1 F) 05/09/2024 1:44 PM EST Respiratory Rate 16 05/17/2022 2:15 PM EST Oxygen Saturation 98% 05/09/2023 1:22 PM EST Inhaled Oxygen Concentration - - Weight 95.9 kg (211 lb 8 oz) 05/09/2024 1:44 PM EST Height 162.6 cm (5' 4 ) 05/09/2024 1:44 PM EST Body Mass Index 36.3 05/09/2024 1:44 PM EST Plan of Treatment Upcoming Encounters Date Type Department Care Team (Late st Contact Info) Description 05/06/2025 10:30 AM EST Appointment [facility] [place] [address] [place] [id number] 05/06/2025 2:00 PM EST Office Visit [facility] [address] [place] [phone] Vanessa Kaplan PA-C [address] [place] [address] Health Maintenance Due Date Last Done Comments DXA SCAN 1954 DIABETIC FOOT EXAM 1964 URINE MICROALBUMIN-CREATININ E RATIO (uACR) 1964 Pneumococcal Vaccine 50+ (1 of 2 - PCV) 1973 TDAP/TD VACCINES (1 - Tdap) 1973 COLOGUARD 1999 COLON CANCER SCREENING 5 YEA R SIGMOIDOSCOPY 1999 CT COLONOGRAPHY 1999 FECAL OCCULT BLOOD TEST 1999 FIT Testing (1 year) 1999 ZOSTER VACCINE (1 of 2) 2004 MAMMOGRAM 08/21/2015 08/21/2013 ANNUAL WELLNESS VISIT 10/25/2016 HEMOGLOBIN A1C 10/25/2016 HEPATITIS C SCREENING 10/25/2016 DIABETIC EYE EXAM 06/15/2019 06/15/2018 INFLUENZA VACCINE 01/31/2025 05/07/2024, 04/21/2015 COVID-19 Vaccine ( season) 2025 07/07/2021, 09/30/2020, 09/02/2020 COLONOSCOPY 11/12/2031 11/11/2021 COLORECTAL CANCER SCREENING 11/12/2031 Procedures Procedure Name Priority Date/Time Associated Diagnosis Comments SCANNED - EYE EXAM 06/15/2018 MAMMO SCREENING BILATERAL W CAD Routine 08/21/2013 11:01 AM EST from Last 3 Months or Most Recently Relevant to Health Maintenance Results * SCANNED - EYE EXAM (06/15/2018) Anatomical Region Laterality Modality Other Dianne Ambrosio MD CHART REVIEW TABS Final Resul t * MAMMOGRAPHY SCREENING BILATERAL (08/21/2013 11:01 AM EST) Anatomical Region Laterality Modality Breast Bilateral Mammography 08/21/2013 11:0 1 AM EST Narrative 08/21/2013 4:44 PM EST BILATERAL SCREENING DIGITAL MAMMOGRAM: HISTORY: Routine screening. TECHNIQUE: Routine bilateral digital CC and MLO views were obtained. IMAGE COMPARISON: 06/22/12, 06/04/12, 11/22/11, 05/23/2011, 11/18/2010 and 05/03/2010. FINDINGS: There are scattered fibroglandular densities which could obscure a lesion on mammography. The fibroglandular pattern appears stable. There is no mass, worrisome microcalcifications, or architectural distortion to suggest development of malignancy. IMPRESSION- No findings suspicious for malignancy. BI-RADS CATEGORY: 1, NEGATIVE RECOMMENDATION: Yearly mammogram, yearly physical exam, and monthly self breast exam. iCAD was used. The standard false negative rate of mammography is between 10 and 25%. Complex patterns or increased breast density will markedly elevate the false negative rate of mammography. A letter, in lay terminology, with the results of this exam will be mailed to the patient. If there is a palpable area of concern, biopsy should be considered regardless of imaging findings. Special Education Secretary- AKASH LIRA MASTERS Releasing Radiologist- SORAYA MASTERS Released Date Time- 08/22/13 1308 Anna Del Valle APRN IMG MAMMOGRAPHY ORDERABLES Final Result from Last 3 Months or Most Recently Relevant to Health Maintenance Insurance [place] [id number] MEDICARE A & B Member Subscriber Plan / Payer ( fective 2019-Present) Name:Ria Alba Member ID:[id number] Relation to Subscriber:Self Name:Ria Alba Subscriber ID:[id number] Payer ID:[id number] Group ID:Not on file Type:Not on file Address: [address] [place] [id number] [facility] Care Teams Ophthalmic Photographer Relationship Specialty Start Date End Date Panchito Mendez MD [address] [facility] [address] [place] [id number] PCP - General Internal Medicine 01/07/16
--- OUTSIDE RECORDS SUMMARY | 2025-04-15 10:13 | XMS_ITS | Referral Summary ---
Author Organization [facility] ([place], [place], [place], [place]) Address [address] [place] [address] Care Team Providers Care Project Management It Specialist Name Role Phone Unavailable Primary Care Provider [...] Date Altaf rded Speak language other than Citizen [place] at home Not on file 03/29/2024 Want [...]
--- OUTSIDE RECORDS SUMMARY | 2025-04-15 10:13 | XMS_ITS | Clinical Summary ---
Author Organization [facility] Address [address] [place] [address] Care Team Providers Care Field Reporter Name Role Phone Panchito Mendez MD Primary Care Provider [phone] Family History Medical History Relation Name Comments [...] of Treatment Not on file Care Teams Field Reporter Relationship Specialty Start Date End Date Panchito Mendez MD [address] [facility] [address] [place] [address] PCP - General 11/13/20
--- NOTE | 2025-04-15 10:30 | CT_ITS ---
FINAL REPORT TECHNIQUE: Thin section axial images were obtained from the lung apices through the upper abdomen without contrast. This study was performed with techniques to keep radiation doses as low as reasonably achievable (ALARA). Individualized dose reduction techniques using automated exposure control or adjustment of mA and/or kV according to the patient's size were employed. CLINICAL HISTORY: Follow-up on right lung nodules COMPARISON: 03/11/2024 FINDINGS: The right thyroid nodules are stable. There is no mediastinal, hilar, or axillary lymphadenopathy. No pleural or pericardial effusion. Right lower lobe nodule measures 13 mm on series 2, image 34 previously measured 14 mm. Smaller right lower lobe nodule is unchanged on series 2, image 41. No new mass or nodule is identified. Limited, unenhanced evaluation of the upper abdomen is without acute abnormality. There is no acute osseous abnormality. IMPRESSION: Stable right lower lobe pulmonary nodules. Recommend continued follow-up. Reviewed, Interpreted and Dictated by Soraida Humphrey MD Transcribed by Georgie Guzmán Authenticated and [facility]
--- NOTE | 2025-04-15 11:00 | MM_ITS ---
PROCEDURE INFORMATION: Exam: MG Bilateral Screening 3D Mammography Exam date and time: 04/15/2025 10:10 AM Age: 70 years old Clinical indication: Screening examination. TECHNIQUE: Imaging protocol: Bilateral Screening tomosynthesis and 2D mammography including computer-aided detection (CAD) when performed. COMPARISON: 1. MG MM DIG MAMM BI DX W/CAD 12/09/2022 2:31 PM 2. MG MM DIG SCREENING MAMM BI W/CAD 11/23/2022 10:11 AM FINDINGS: MAMMOGRAPHY: Breast composition: There are scattered areas of fibroglandular density. Mass: None. Architectural distortion: None. Calcifications: No suspicious calcifications. Asymmetric density: None. Skin thickening: None. Axillary adenopathy: None. IMPRESSION: No mammographic evidence of malignancy. Annual screening is recommended unless otherwise clinically indicated. ASSESSMENT: BI-RADS Category 1: Negative.
== END 2025-04-15 23:59 | disposition home or self-care (01) ==
LOC: RAD 10:09
PROVIDERS: PCP Internal Medicine; Visit Provider Internal Medicine
DX: Z12.31 Encounter for screening mammogram for malignant neoplasm of breast (principal); R92.323 Mammographic fibroglandular density, bilateral breasts; R91.8 Other nonspecific abnormal finding of lung field
CPT/HCPCS: 71250; 77063; 77067

== ENCOUNTER 2025-06-04 13:19 | Outpatient (CLI) | payer MEDICARE, BC, SELFPAY ==
--- OUTSIDE RECORDS SUMMARY | 2025-05-06 09:29 | XMS_ITS | Encounter Summary ---
Author Organization [facility] Address [address] [place] [address] Care Team Providers Care High School Football Coach Name Role Phone Panchito Mendez MD Primary Care Provider [phone] Reason for Referral * MRI/CAT/PET Scan (Routine) - Closed Specialty Diagnoses / Procedures Referred By Tere roldan Referred To Contact Radiology Diagnoses Pituitary adenoma with extrasellar extension S/P selective transsphenoidal pituitary adenomectomy Procedures MRI Pituitary With & Without Contrast Vanessa Kaplan PA-C [address] [facility] [address] [place] [address] Phone: tel: fax: [facility] MRI [address] [place] [address] Phone: tel: Referral ID Status Reason Start Date Expiration Date Visits Re quested Visits Authorized [id number] Closed 05/09/2024 05/09/2025 1 1 Reason for Visit * MRI/CAT/PET Scan (Routine) - Closed Specialty Diagnoses / Procedures Referred By Tere roldan Referred To Contact Radiology Diagnoses Pituitary adenoma with extrasellar extension S/P selective transsphenoidal pituitary adenomectomy Procedures MRI Pituitary With & Without Contrast Vanessa Kaplan PA-C [address] [facility] [address] [place] [address] Phone: tel: fax: [facility] MRI [address] [place] [address] Phone: tel: Referral ID Status Reason Start Date Expiration Date Visits Re quested Visits Authorized [id number] Closed 05/09/2024 05/09/2025 1 1 Encounter Details Date Type Department Care Team (Late st Contact Info) Description 05/06/2025 9:29 AM EST - 05/06/2025 11:59 PM EST Hospital Encounter [facility] [place] [address] [place] [address] Vanessa Kaplan PA-C [address] [facility] [address] [place] [address] Pituitary adenoma with extrasellar extension; S/P selective transsphenoidal pituitary adenomectomy Discharge Disposition: Home or Self Care Social History Tobacco Use Types Packs/Day Years Used Date Smoking Tobacco: Never Passive Smoke Exposure: Never Smokeless Tobacco: Never Alcohol Use Standard Drinks/Week Comments No 0 (1 standard drink = 0.6 oz pur e alcohol) Comments No Sex and Gender Information Value Date Recorded Sex Assigned at Not on file Legal Sex Female 12:44 PM EDT Gender Identity Not on file Sexual Orientation Not on file documented as of this encounter Medications at Time of Discharge atropine 1 % ophthalmic solution Administer 1 drop into the left eye Every Night. 11/10/2015 carvedilol (COREG) 25 MG tablet Take 1 tablet by mouth 2 (Two) Times a Day With Meals. 12/15/2015 colesevelam (WELCHOL) 625 MG tablet 05/12/2019 diphenoxylate-at ropine (LOMOTIL) 2.5-0.025 MG per tablet 04/21/2019 glimepiride (AMARYL) 4 MG tablet Take 1 tablet by mouth Every Morning Before Breakfast. 12/15/2015 irbesartan-hydro chlorothiazide (AVALIDE) 300-12.5 MG tablet 05/12/2019 latanoprost (XALATAN) 0.005 % ophthalmic solution 03/05/2024 LUMIGAN 0.01 % ophthalmic drops 04/03/2017 Multiple Vitamins-Mineral s (MULTIVITAMIN ADULT PO) Take by mouth daily. omeprazole (priLOSEC) 20 MG capsule Take 1 capsule by mouth Daily. oxybutynin (DITROPAN) 5 MG tablet 05/10/2022 Pazeo 0.7 % solution 03/01/2020 prednisoLONE acetate (PRED FORTE) 1 % ophthalmic suspension Administer 1 drop into the left eye 2 (Two) Times a Day. 11/10/2015 Procto-Med HC 2.5 % rectal cream 04/27/2020 simvastatin (ZOCOR) 20 MG tablet Take 1 tablet by mouth Every Night. 11/23/2015 Trulicity 0.75 MG/0.5ML solution auto-injector 04/18/2024 documented as of this encounter Plan of Treatment Not on file documented as of this encounter Procedures Procedure Name Priority Date/Time Associated Diagnosis Comments MRI PITUITARY W WO CONTRAST STAT 05/06/2025 11:18 AM EST Pituitary adenoma with extrasellar extension S/P selective transsphenoidal pituitary adenomectomy documented in this encounter Results * MRI Pituitary With & Without Contrast (05/06/2025 11:18 AM EST) Anatomical Region Laterality Modality Head, Neck N/A Magnetic Resonan ce 05/06/2025 11:2 3 AM EST Impressions 05/06/2025 11:38 AM EST Impression: 1.Stable post-operative changes from transsphenoidal approach to sella. Mild soft tissue within cavernous sinus and posterior clivus appears unchanged, suggesting some component of residual tumor. No new focus of tumor identified. 2.No acute intracranial process identified. Electronically Signed: Tom Harding MD 05/06/2025 11:38 AM EST Workstation ID: [id number] Narrative 05/06/2025 11:38 AM EST MRI PITUITARY W WO CONTRAST Date of Exam: 05/06/2025 10:12 AM EST Indication: Pituitary adenoma, residual. Comparison: May 09, 2024 Technique: Routine multiplanar/multisequence sequence images of the brain were obtained before and after the uneventful administration of Vueway. Findings: No acute infarction, intracranial hemorrhage, or extra-axial collection is identified. The ventricles are stable in caliber, with no midline shift. Basal cisterns appear patent. No pathological parenchymal enhancement is identified. There is a right lens replacement. Post-operative changes are noted along the left globe. The intracranial vascular flow-voids appear patent. There are stable post-operative changes from transsphenoidal approach to the sella. The infundibulum is slightly deviated to the left. Mild soft tissue within the cavernous sinuses more prominent on the left and along the posterior clivus appears unchanged, suggesting some component of residual tumor. No new focus of tumor is identified. The optic chasm appears intact. Procedure Note Tom Harding MD - 05/06/2025 MRI PITUITARY W WO CONTRAST Date of Exam: 05/06/2025 10:12 AM EST Indication: Pituitary adenoma, residual. Comparison: May 09, 2024 Technique: Routine multiplanar/multisequence sequence images of the brainwere obtained before and after the uneventful administration of Vueway. Findings: No acute infarction, intracranial hemorrhage, or extra-axial collection isidentified. The ventricles are stable in caliber, with no midline shift.Basal cisterns appear patent. No pathological parenchymal enhancement isidentified. There is a right lens replacement. Post-operative changes are noted along the left globe. Theintracranial vascular flow-voids appear patent. There are stable post-operative changes from transsphenoidal approach tothe sella. The infundibulum is slightly deviated to the left. Mild softtissue within the cavernous sinuses more prominent on the left and alongthe posterior clivus appears unchanged, suggesting some component of residual tumor. No new focus oftumor is identified. The optic chasm appears intact. IMPRESSION: Impression: 1.Stable post-operative changes from transsphenoidal approach to sella.Mild soft tissue within cavernous sinus and posterior clivus appearsunchanged, suggesting some component of residual tumor. No new focus oftumor identified. 2.No acute intracranial process identified. Electronically Signed: Tom Harding MD 05/06/2025 11:38 AM EST Workstation ID: [id number] Vanessa Kaplan PA-C IMG MRI ORDERABLES Final Result documented in this encounter Visit Diagnoses Diagnosis Pituitary adenoma with extrasellar extension S/P selective transsphenoidal pituitary adenomectomy Other postprocedural status documented in this encounter Administered Medications Inactive Administered Medications - up to 3 most recent administrations Medication Order MAR Action Action Date Dose Rate Site Gadopiclenol (VUEWAY) injection 9 mL 9 mL, Intravenous, Once in Imaging, On Mon05/06/25 at 1145, For 1 dose, Administer undiluted as intravenous bolus at 2 ml/sec. Flush with NS after injection. Given 05/06/2025 10:56 AM EST 9 mL documented in this encounter Care Teams High School Football Coach Relationship Specialty Start Date End Date Panchito Mendez MD [address] [facility] [address] [place] [address] PCP - General Internal Medicine 01/07/16 documented as of this encounter
--- OUTSIDE RECORDS SUMMARY | 2025-05-06 12:30 | XMS_ITS | Encounter Summary ---
Author Organization [facility] Address [address] [place] [address] Care Team Providers Care Accounts Payable Bookkeeper Name Role Phone Panchito Mendez MD Primary Care Provider [phone] Reason for Referral * MRI/CAT/PET Scan (Routine) - Pending Review Specialty Diagnoses / Procedures Referred By Tere roldan Referred To Contact Radiology Diagnoses Pituitary adenoma Procedures MRI Pituitary With & Without Contrast Vanessa Kaplan PA-C [address] [facility] [address] [place] [address] Phone: tel: fax: Referral ID Status Reason Start Date Expiration Date V isits Requested Visits Authorized [id number] Pending Review 05/07/2025 08/06/2026 1 1 Reason for Visit * Reason Comments Brain Tumor Pituitary adenoma wi th extrasellar extension. Encounter Details Date Type Department Care Team (Late st Contact Info) Description 05/06/2025 12:30 PM EST Office Visit [facility] NEUROSURGERY [address] [facility] [address] [place] [id number] Vanessa Kaplan PA-C [address] [facility] [address] [place] [address] Pituitary adenoma (Primary Dx) Social History Tobacco Use Types Packs/Day Years Used Date Smoking Tobacco: Never Passive Smoke Exposure: Never Smokeless Tobacco: Never Tobacco Cessation:Counseling Given: No Alcohol Use Standard Drinks/Week Comments No 0 (1 standard drink = 0.6 oz pur e alcohol) Comments No Sex and Gender Information Value Date Recorded Sex Assigned at Not on file Legal Sex Female 12:44 PM EDT Gender Identity Not on file Sexual Orientation Not on file documented as of this encounter Last Filed Vital Signs Vital Sign Reading Time Taken Comments Blood Pressure - - Pulse - - Temperature 36.8 C (98.2 F) 05/06/2025 12:27 PM EST Respiratory Rate - - Oxygen Saturation - - Inhaled Oxygen Concentration - - Weight 98 kg (216 lb 1.6 oz) 05/06/2025 12:27 PM EST Height 160 cm (5' 3 ) 05/06/2025 12:27 PM EST Body Mass Index 38.28 05/06/2025 12:27 PM EST documented in this encounter Progress Notes * Vanessa Kaplan PA-C - 05/06/2025 12:30 PM EST 8Anifilomena Alba 1955 [id number] 05/06/2025 Chief Complaint Patient presents with Brain Tumor Pituitary adenoma with extrasellar extension. Brain Tumor Symptoms: no abdominal pain, no chest pain, no chills, no congestion, no cough, no diaphoresis, no fatigue, no fever, no headaches, no myalgias, no nausea, no neck pain, no numbness, no rash, no sorethroat, no dysuria, no vomiting and no weakness Ms Alba is a 69 yo WF here for f/u brain MRI from an invasive pitutary adenoma She had tumor resection at [place] on 11/17/2014, [facility] SRS on 02/05/2016. 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 She has opthalmology Exams every 3months. No change in vision. She is scheduled for v isual ballesteros in July, she usually has these done about every 6 months or so. She feels well. Chronic Illnesses: Past Medical History: No date: Diabetes No date: Gall stones No date: Hypertension No date: Pituitary adenoma Comment: [facility] tx on 02/09/2016, tumor removed in 2015 at [place] Past Surgical History: Procedure Laterality Date BRAIN SURGERY SECTION CHOLECYSTECTOMY HYSTERECTOMY Allergies Allergen Reactions Lisinopril Cough Morphine And Codeine Dizziness Latex Rash Latex tape gives skin rash Current Outpatient Medications: atropine 1 % ophthalmic solution, Administer 1 drop into the left eye Every Night., Disp: , Rfl: carvedilol (COREG) 25 MG tablet, Take 1 tablet by mouth 2 (Two) Times a Day With Meals., Disp: , Rfl: colesevelam (WELCHOL) 625 MG tablet, , Disp: , Rfl: diphenoxylate-atropine (LOMOTIL) 2.5-0.025 MG per tablet, , Disp: , Rfl: glimepiride (AMARYL) 4 MG tablet, Take 1 tablet by mouth Every Morning Before Breakfast., Disp: , Rfl: irbesartan-hydrochlorothiazide (AVALIDE) 300-12.5 MG tablet, , Disp: , Rfl: latanoprost (XALATAN) 0.005 % ophthalmic solution, , Disp: , Rfl: LUMIGAN 0.01 % ophthalmic drops, , Disp: , Rfl: Multiple Vitamins-Minerals (MULTIVITAMIN ADULT PO), Take by mouth daily., Disp: , Rfl: omeprazole (priLOSEC) 20 MG capsule, Take 1 capsule by mouth Daily., Disp: , Rfl: oxybutynin (DITROPAN) 5 MG tablet, , Disp: , Rfl: Pazeo 0.7 % solution, , Disp: , Rfl: prednisoLONE acetate (PRED FORTE) 1 % ophthalmic suspension, Administer 1 drop into the left eye 2 (Two) Times a Day., Disp: , Rfl: Procto-Med HC 2.5 % rectal cream, , Disp: , Rfl: simvastatin (ZOCOR) 20 MG tablet, Take 1 tablet by mouth Every Night., Disp: , Rfl: Trulicity 0.75 MG/0.5ML solution auto-injector, , Disp: , Rfl: No current facility-administered medications for this visit. Social History Socioeconomic History Marital status: Tobacco Use Smoking status: Never Passive exposure: Never Smokeless tobacco: Never Vaping Use Vaping status: Never Used Substance and Sexual Activity Alcohol use: No Drug use: No Sexual activity: Defer family history includes Diabetes in her sister; Heart disease in her father. Review of Systems Constitutional: Negative for activity change, appetite change, chills, diaphoresis, fatigue, fever and unexpected weight change. HENT: Negative for congestion, dental problem, drooling, ear discharge, ear pain, facial swelling, hearing loss, mouth sores, nosebleeds, postnasal drip, rhinorrhea, sinus pressure, sinus pain, sneezing, sore throat, tinnitus, trouble swallowing and voice change. Eyes: Negative for photophobia, pain, discharge, redness, itching and visual disturbance. Respiratory: Negative for apnea, cough, choking, chest tightness, shortness of breath, wheezing andstridor. Cardiovascular: Negative for chest pain, palpitations and leg swelling. Gastrointestinal: Negative for abdominal distention, abdominal pain, anal bleeding, blood in stool,constipation, diarrhea, nausea, rectal pain and vomiting. Endocrine: Negative for cold intolerance, heat intolerance, polydipsia, polyphagia and polyuria. Genitourinary: Negative for decreased urine volume, difficulty urinating, dyspareunia, dysuria, enuresis, flank pain, frequency, genital sores, hematuria, menstrual problem, pelvic pain, urgency, vaginal bleeding, vaginal discharge and vaginal pain. Musculoskeletal: Negative for arthralgias, back pain, gait problem, joint swelling, myalgias, neck pain and neck stiffness. Skin: Negative for color change, pallor, rash and wound. Allergic/Immunologic: Negative for environmental allergies, food allergies and immunocompromised state. Neurological: Negative for dizziness, tremors, seizures, syncope, facial asymmetry, speech difficulty, weakness, light-headedness, numbness and headaches. Hematological: Negative for adenopathy. Does not bruise/bleed easily. Psychiatric/Behavioral: Negative for agitation, behavioral problems, confusion, decreased concentration, dysphoric mood, hallucinations, self-injury, sleep disturbance and suicidal ideas. The patientis not nervous/anxious and is not hyperactive. Gait & Balance Assessment : Risk assessment for falls. Fall precautions. universal fall precautions, such as; Using gait aids a cane, walker at the appropriate height at all times for ambulation or if necessary a wheelchair Removing all area rugs and coffee tables to create a safe environment at home Ensure clean, dry floors Wearing supportive footwear and properly fitting clothing Ensure bed/chair is appropriate height and patient's feet can touch the floor Using a shower transfer bench Using walk-in shower and having shower safety bars installed Ensure proper lighting, minimize glare Have nightlights operational and in use Participation in an exercise program for gait training, balance training and strength Avoid carrying laundry up and down steps Ensure proper compliance and organization of medications to avoid errors Avoid use of over the counter sedatives and alcohol consumption Ensure easy access to call raya, glasses, TV control, telephone Ensure glasses/hearing aids are in use or close by (on top of night table) Social History Tobacco Use Smoking status: Never Passive exposure: Never Smokeless tobacco: Never Body mass index is 38.28 kg/m??. Class 2 Severe Obesity (BMI >=35 and <=39.9). Obesity-related health conditions include the following: osteoarthritis. Obesity is unchanged. BMI is is above average; BMI management plan is completed. Physical Examination: Temp 98.2 ??F (36.8 ??C) (Temporal) Ht 160 cm (63 ) Wt 98 kg (216 lb 1.6 oz) BMI 38.28 kg/m?? HEENT-wnl Lungs-No wheezing or SOB Patient is awake, alert and oriented. Blind left eye. Face symmetric. Tongue midline. 5/5 in the extremities. Gait normal Radiological Data Review: All neurological imaging studies were independently reviewed unless otherwise documented. I reviewed the new MRI of the pituitary which redemonstrates postoperative changes. There is persistent abnormal signal seen involving both cavernous sinuses laterally as well as cleaning posterior inferiorly along the clivus concerning for residual tumor but unchanged. Assessment and Plan: There are no diagnoses linked to this encounter. Ms. Alba is a 69-year-old female with invasive pituitary adenoma who underwent resection at [place] in 2014. She completed SRS treatment in 2016. She is followed on a yearly basis with serial MRI scans which are stable. She follows with neuro-ophthalmology every 3 months, her last visual ballesteros were stable, she is scheduled to have visual field testing in July 2024. Overall she feels well, no changes in her vision. Our plan will be follow-up appointment in 2 years with pituitary MRI protocol. Including assessment, review of prior documentation, review and interpretation of new and old diagnostic studies, discussing these findings with the patient and documentation, more than 30 minutes total time was spent on this appointment. Any copied data from previous notes included in the (1) HPI, (2) PE, (3) MDM and/or assessment and plan has been reviewed and is accurate as of this date. Vanessa Kaplan, SOBIA PCP: Panchito Mendez MD documented in this encounter Plan of Treatment Scheduled Orders Name Type Priority Associated Diagnoses Orde r Schedule MRI Pituitary With & Without Contrast Imaging Routine Pituitary adenoma Expected: 11/03/2025, Expires: 05/07/2026 documented as of this encounter Visit Diagnoses Diagnosis Pituitary adenoma- Primary Benign neoplasm of pituitary gland and craniopharyngeal duct (pouch) documented in this encounter Care Teams Accounts Payable Bookkeeper Relationship Specialty Start Date End Date Panchito Mendez MD [address] [facility] [address] [place] [address] PCP - General Internal Medicine 01/07/16 documented as of this encounter
--- OUTSIDE RECORDS SUMMARY | 2025-06-04 13:24 | XMS_ITS | Clinical Summary ---
Author Organization [facility] Address [address] [place] [address] Care Team Providers Care Hard Candy Batch Mixer Name Role Phone Panchito Mendez MD Primary Care Provider [phone] Allergies Active Allergy Reactions Criticality Noted Date [...] Times a Day With Meals. 6 Active prednisoLONE acetate (PRED FORTE) 1 % ophthalmic suspension Administer 1 drop into the left eye 2 (Two) Times a Day. 6 Active atropine 1 % ophthalmic solution Administer 1 drop into the left eye Every Night. 6 Active Multiple Vitamins-Whitley als (MULTIVITAMIN ADULT PO) Take by mouth daily. Active LUMIGAN 0.01 % ophthalmic drops 7 Active omeprazole (priLOSEC) 20 MG capsule Take 1 capsule by mouth Daily. Active colesevelam (WELCHOL) 625 MG tablet 9 Active diphenoxylate- atropine (LOMOTIL) 2.5-0.025 MG per tablet 9 Active irbesartan-hyd rochlorothiazi de (AVALIDE) 300-12.5 MG tablet 9 Active Procto-Med HC 2.5 % rectal cream 0 Active Pazeo 0.7 % solution 0 Active oxybutynin (DITROPAN) 5 MG tablet 2 Active latanoprost (XALATAN) 0.005 % ophthalmic solution 4 Active Trulicity 0.75 MG/0.5ML solution auto-injector 4 Active valsartan-hydr ochlorothiazid e (DIOVAN-HCT) 320-25 MG per tablet Take 1 tablet by mouth Daily. 6 05/06/20 25 Discontinu ed(*Therap y completed) Januvia 100 MG tablet 0 05/06/20 25 Discontinu ed(*Therap y completed) sertraline (ZOLOFT) 50 MG tablet 1 05/06/20 25 Discontinu ed(*Therap y completed) Active Problems Problem Noted Date Diagnosed Date S/P selective transsphenoidal pituitary adenomec jace 05/09/2023 Pituitary adenoma 03/14/2016 Pituitary adenoma with extrasellar extension Diabetes 12/23/2015 Encounters Date Type Department Care Team Description 05/06/2025 12:30 PM EST Office Visit [facility] NEUROSURGERY [address] [address] [place] [id number] Vanessa Kaplan PA-C Pituitary adenoma (Primary Dx) 05/06/2025 9:29 AM EST - 05/06/2025 11:59 PM EST Hospital Encounter [facility] [place] [address] [address] [place] [address] Vanessa Kaplan PA-C Pituitary adenoma with extrasellar extension; S/P selective transsphenoidal pituitary adenomectomy Discharge Disposition: Home or Self Care 05/06/2025 Travel from Last 3 Months Immunizations Immunization Administration Dates Next Due Influenza, [...] Pulse 102 05/09/2023 1:22 PM EST Temperature 36.8 C (98.2 F) 05/06/2025 12:27 PM EST Respiratory Rate 16 05/17/2022 2:15 PM EST Oxygen Saturation 98% 05/09/2023 1:22 PM EST Inhaled Oxygen Concentration - - Weight 98 kg (216 lb 1.6 oz) 05/06/2025 12:27 PM EST Height 160 cm (5' 3 ) 05/06/2025 12:27 PM EST Body Mass Index 38.28 05/06/2025 12:27 PM EST Plan of Treatment Health Maintenance Due Date Last Done Comments DXA SCAN 1954 DIABETIC FOOT EXAM 1964 URINE MICROALBUMIN-CREATININ E RATIO (uACR) 1964 Pneumococcal Vaccine 50+ (1 of 2 - PCV) 1973 TDAP/TD VACCINES (1 - Tdap) 1973 COLOGUARD 1999 COLON CANCER SCREENING 5 YEA R SIGMOIDOSCOPY 1999 COLONOSCOPY 1999 COLORECTAL CANCER SCREENING 1999 CT COLONOGRAPHY 1999 FECAL OCCULT BLOOD TEST 1999 FIT Testing (1 year) 1999 ZOSTER VACCINE (1 of 2) 2004 MAMMOGRAM 08/21/2015 08/21/2013 ANNUAL WELLNESS VISIT 10/25/2016 HEMOGLOBIN A1C 10/25/2016 HEPATITIS C SCREENING 10/25/2016 DIABETIC EYE EXAM 06/15/2019 06/15/2018 COVID-19 Vaccine (3 - Modern a risk series) 08/04/2021 07/07/2021, 09/30/2020, 09/02/2020 INFLUENZA VACCINE 01/31/2025 05/07/2024, 04/21/2015 Procedures Procedure Name Priority Date/Time Associated Diagnosis Comments MRI PITUITARY W WO CONTRAST STAT 05/06/2025 11:18 AM EST Pituitary adenoma with extrasellar extension S/P selective transsphenoidal pituitary adenomectomy SCANNED - EYE EXAM 06/15/2018 MAMMO SCREENING BILATERAL W CAD Routine 08/21/2013 11:01 AM EST from Last 3 Months or Most Recently Relevant to Health Maintenance Results * MRI Pituitary With & Without [...] MD 05/06/2025 11:38 AM EST Workstation ID: [id number] Narrative 05/06/2025 11:38 AM EST MRI PITUITARY [...] MD 05/06/2025 11:38 AM EST Workstation ID: [id number] Vanessa Kaplan PA-C IMG MRI ORDERABLES Final Result * SCANNED - EYE EXAM (06/15/2018) Anatomical [...] should be considered regardless of imaging findings. Filter Cloth Maker- AKASH LIRA MASTERS Releasing RadiologistGil LIRA MASTERS Released Date Time- 08/22/13 130[address] Anna Del Valle APRN [facility] [place] ORDERABLES Final Result from Last 3 Months or Most Recently Relevant to Health Maintenance [place] [address] MEDICARE A & B Member Subscriber Plan / Payer (Ef fective 2019-Present) Name:Ria Alba Member ID:[id number] Relation to Subscriber:Self Name:Ria Alba Subscriber ID:[id number] Payer ID:[id number] Group ID:Not on file Type:Not on file Address: [facility] [address] [place] [id number] [employer] PPO Care Teams Hard Candy Batch Mixer Relationship Specialty Start Date End Date Panchito Mendez MD [address] [place] [address] [address] [id number] PCP - General Internal Medicine 01/07/16
--- OUTSIDE RECORDS SUMMARY | 2025-06-04 13:24 | XMS_ITS | Clinical Summary ---
Author Organization [facility] Address [address] [place] [address] Care Team Providers Care Wood Experimental Mechanic Name Role Phone Panchito Mendez MD Primary Care Provider [phone] Family History Medical History Relation Name Comments [...] of Treatment Not on file Care Teams Wood Experimental Mechanic Relationship Specialty Start Date End Date Panchito Mendez MD [address] [facility] [address] [place] [address] PCP - General 11/13/20
--- OUTSIDE RECORDS SUMMARY | 2025-06-04 13:24 | XMS_ITS | Referral Summary ---
Author Organization [employer] ([place], [place], [place], [place], [place]) Address [address] [place] [address] Care Team Providers Care Slat Basket Maker Name Role Phone Unavailable Primary Care Provider [...] Date Altaf rded Speak language other than Burundian at home Not on file 03/29/2024 Want [...]
--- OUTSIDE RECORDS SUMMARY | 2025-06-04 13:24 | XMS_ITS | Clinical Summary ---
Author Organization [employer] ([place], [place], [place], [place], [place]) Address [address] [place] [address] Care Team Providers Care Program Coordinator Executive Education Name Role Phone Unavailable Primary Care Provider [...] Date Altaf rded Speak language other than Libyan at home Not on file 03/29/2024 Want [...] 08/21/2013 Falls Risk Screening 07/03/2024 COVID-19 VACCINE ( - season) 2025 07/07/2021, 09/30/2020, 09/02/2020 Influenza Vaccine (#1) 2025 Respiratory Syncytial Virus (RSV) Adult or (1 - 1-dose 75+ series) 2029
--- OUTSIDE RECORDS SUMMARY | 2025-06-04 13:24 | XMS_ITS | Encounter Summary ---
Author Organization [facility] Address [address] [place] [address] Care Team Providers Care Ring Conductor Name Role Phone Panchito Mendez MD Primary Care Provider [phone] Encounter Details Date Type Department Care Team (Latest Contact Info) Description 05/06/2025 Travel Social History Tobacco Use Types Packs/Day Years [...] on file documented as of this encounter Plan of Treatment Not on file documented as of this encounter Visit Diagnoses Not on filedocumented in this encounter Care Teams Ring Conductor Relationship Specialty Start Date End Date Panchito Mendez MD [address] [facility] [address] [place] [address] [place] [address] PCP - General Internal Medicine 01/07/16 documented as of this encounter
[2025-06-04 13:25] LABS: Hematocrit 36.1 % (37.0-47.0); Hemoglobin 11.4 g/dL (12.2-16.2); Immature Granulocytes % 0.5 %; Mean Corpuscular HGB Conc 31.6 g/dL (31.8-35.4); Mean Corpuscular Hemoglobin 27.3 pg (27.0-31.2); Mean Corpuscular Volume 86.6 fl (81-99); Nucleated Red Blood Cells % 0 %; Platelet Count 198 K/mm3 (142-424); Red Blood Count 4.17 M/mm3 (4.20-5.40); Red Cell Distribution Width-SD 44.9 fL; White Blood Count 7.6 K/mm3 (4.8-10.8)
[2025-06-04 14:04] LABS: Alanine Aminotransferase 16 U/L (12-78); Albumin Level 3.8 g/dl (3.5-5.0); Albumin/Globulin Ratio 1.2 (1.1-1.8); Alkaline Phosphatase 68 U/L (38-126); Anion Gap 8.9 mEq/L (5-15); Aspartate Amino Transferase 26 U/L (14-36); Bilirubin,Total 1.0 mg/dl (0.2-1.3); Blood Urea Nitrogen 15 mg/dl (7-17); Carbon Dioxide 24 mmol/L (22.0-30.0); Chloride 105 mmol/L (98-107); Cholesterol 108 mg/dl (140-200); Creatinine,Serum 0.90 mg/dl (0.52-1.04); Estimated Glomerular Filt Rate 62 ml/min (>60); GFR (African American) 75 ML/MIN (>60); Globulin 3.2 g/dL (1.3-3.2); HDL Cholesterol 33 mg/dl (40-60); Potassium 3.9 mmoL/L (3.5-5.1); Sodium 134 mmol/L (136-145); Total Protein,Serum 7.0 g/dl (6.3-8.2); Triglycerides 157 mg/dl (30-150)
[2025-06-04 14:16] LABS: Free T4 (Free Thyroxine) 1.21 ng/dl (0.78-2.19)
[2025-06-04 14:42] LABS: Thyroid Stimulating Hormone < 0.02 uIU/mL (0.465-4.68)
[2025-06-04 18:26] LABS: Hemoglobin A1C 6.5 % (4.0-6.0)
[2025-06-04 18:40] LABS: Calcium 9.1 mg/dl (8.4-10.2); Glucose 114 mg/dl (74-100)
[2025-06-05 15:13] LABS: Cortisol,AM 6.0 ug/dL (6.2-19.4)
== END 2025-06-04 23:59 | disposition home or self-care (01) ==
LOC: LAB.DROPOF 13:19
PROVIDERS: PCP Internal Medicine; Visit Provider Internal Medicine
DX: E11.43 Type 2 diabetes mellitus with diabetic autonomic (poly)neuropathy (principal); E11.42 Type 2 diabetes mellitus with diabetic polyneuropathy; I10 Essential (primary) hypertension; E78.5 Hyperlipidemia, unspecified; D49.7 Neoplasm of unspecified behavior of endocrine glands and other parts of nervous system; E04.1 Nontoxic single thyroid nodule
CPT/HCPCS: 80053; 80061; 82043; 82533; 82570; 83036; 84146; 84439; 84443; 85025